=== PATIENT | female | born 1960 | race African-American/Black ===

== ENCOUNTER 2018-12-29 08:42 | Inpatient (IN) ==
[2018-12-29] MEDS ORDERED: KETOROLAC 30 MG/1 ML VIAL IV STA (09:01)
[2018-12-29 09:27] LABS: Basophils % 0.5 % (0.0-0.8); Eosinophils # 0.3 10*3/uL (0.0-0.87); Eosinophils % 4.7 % (0.00-10.9); Hematocrit 37.8 VOL% (35.7-47.0); Hemoglobin 12.3 GM/DL (12.0-16.0); Immature Granulocytes % 0.2 %; Immature Granulocytes Absolute 0.01 #; Lymphocytes # 2.1 10*3/uL (1.4-4.0); Lymphocytes % 33.9 % (21.3-54.2); Mean Corpuscular HGB Conc 32.5 GM/DL (32-36); Mean Corpuscular Hemoglobin 29 PG (27-34); Mean Corpuscular Volume 87.5 FL (87-102); Mean Platelet Volume 10.1 FL (9.6-12.0); Monocytes # 0.4 10*3/uL (0.11-0.8); Monocytes % 6.9 % (1.7-12.7); Neutrophils # 3.3 10*3/uL (1.4-7.4); Neutrophils % 53.8 % (38.7-73.9); Platelet Count 244 T/CUMM (130-400); Red Blood Count 4.32 MC/CUMM (3.8-5.5); Red Cell Distribution Width 13.9 % (9.3-17.3); White Blood Count 6.2 T/CUMM (4-12)
[2018-12-29 09:53] LABS: Apearance,Urine CLEAR (Clear); Bacteria,Urine Occasional /HPF (Few); Bilirubin,Urine Negative (Negative); Blood, Urine Small mg/dL (Negative); Glucose,Urine (UA) Negative (Negative); Ketones,Urine Negative (Negative); Nitrite,Urine Negative (Negative); Protein,Urine Negative; RBC,Urine 3 /HPF (0-4); Squamous Epithelial Cell,Urine Occasional /HPF (0-10); Urine Color Yellow (Yellow); Urine Urobilinogen < 2.0 EU/DL (0.2-1.0); WBC,Urine 3 /HPF (0-6)
[2018-12-29 09:54] LABS: Albumin 3.3 G/DL (3.4-5.0); Bilirubin,Total 0.4 MG/DL (0.2-1.0); Calcium 8.9 MG/DL (8.5-10.1); Osmolality,Calculated 280.4 MOS/KG (273-304); Total Protein 6.9 G/DL (6.4-8.3)
[2018-12-29] MEDS ORDERED: LEVOFLOXACIN INJ 500 MG in PREMIX 1 EACH IV ONE (11:22)
[2018-12-29] MEDS ORDERED: metroNIDAZOLE INJ 500 MG in PREMIX 1 EACH IV ONE (11:22)
[2018-12-29] MEDS ORDERED: ONDANSETRON 4 MG/2 ML VIAL IV STA (11:37)
[2018-12-29] MEDS ORDERED: HYDROmorphone 2 MG/1 ML VIAL IV STA (11:37)
[2018-12-29] MEDS ORDERED: KETOROLAC 10 MG TABLET PO PRN (12:14)
[2018-12-29] MEDS ORDERED: ACETAMINOPHEN 325 MG TABLET PO PRN (12:14)
[2018-12-29] MEDS ORDERED: HYDROmorphone 2 MG/1 ML VIAL IV PRN (12:14)
[2018-12-29] MEDS ORDERED: hydrOXYzine HCL 25 MG TABLET PO PRN (12:17)
[2018-12-29] MEDS ORDERED: HydrOXYzine PAMOATE 50 MG CAPSULE PO PRN (12:17)
[2018-12-29] MEDS ORDERED: ALBUTEROL 2.5 MG/3 ML NEB RESP TX PRN (12:17)
[2018-12-29] MEDS ORDERED: AZELASTINE NASAL 137 MCG/SPRAY 30 ML BOTTLE BOTH NARES PRN (12:17)
[2018-12-29] MEDS ORDERED: DEXTROSE 50% 25 GM/50 ML VIAL IV PRN (12:19)
[2018-12-29] MEDS ORDERED: GLUCAGON 1 MG VIAL IM PRN (12:19)
[2018-12-29] MEDS: LACTATED RINGERS 1,000 ML IV SCH (14:12)
[2018-12-29] MEDS: cefOXitin 2,000 MG in SYRINGE 1 EACH IV SCH ×2 (14:21→21:36)
[2018-12-29] MEDS: IPRATROPIUM 500 MCG/2.5 ML NEB RESP TX SCH ×2 (15:59→18:12)
[2018-12-29] MEDS: METOPROLOL TARTRATE 100 MG TABLET PO SCH (17:52)
[2018-12-29] MEDS: ASPIRIN EC 81 MG TABLET PO SCH (17:52)
[2018-12-29] MEDS: INSULIN LISPRO 100 UNIT/ML SUBCUT SCH (17:53)
[2018-12-29] MEDS: PANTOPRAZOLE 40 MG TABLET PO SCH (17:53)
[2018-12-29] MEDS: amLODIPine 10 MG TABLET PO SCH (17:53)
[2018-12-29] MEDS: POTASSIUM CHLORIDE 20 MEQ TABLET PO SCH (18:32)
[2018-12-29] MEDS: CHLORTHALIDONE 25 MG TABLET PO SCH (18:32)
[2018-12-29] MEDS: TOPIRAMATE 25 MG TABLET PO SCH (21:36)
[2018-12-30] MEDS: LACTATED RINGERS 1,000 ML IV SCH ×2 (03:04→14:37)
[2018-12-30] MEDS: cefOXitin 2,000 MG in SYRINGE 1 EACH IV SCH ×2 (03:08→08:13)
[2018-12-30 05:43] LABS: Basophils % 0.5 % (0.0-0.8); Eosinophils # 0.2 10*3/uL (0.0-0.87); Eosinophils % 3.6 % (0.00-10.9); Hematocrit 35.9 VOL% (35.7-47.0); Hemoglobin 11.7 GM/DL (12.0-16.0); Immature Granulocytes % 0.5 %; Immature Granulocytes Absolute 0.03 #; Lymphocytes # 1.7 10*3/uL (1.4-4.0); Lymphocytes % 29.6 % (21.3-54.2); Mean Corpuscular HGB Conc 32.6 GM/DL (32-36); Mean Corpuscular Hemoglobin 29 PG (27-34); Mean Corpuscular Volume 88.4 FL (87-102); Mean Platelet Volume 11.2 FL (9.6-12.0); Monocytes # 0.4 10*3/uL (0.11-0.8); Neutrophils # 3.4 10*3/uL (1.4-7.4); Neutrophils % 58.8 % (38.7-73.9); Platelet Count 175 T/CUMM (130-400); Red Blood Count 4.06 MC/CUMM (3.8-5.5); Red Cell Distribution Width 14.1 % (9.3-17.3); White Blood Count 5.8 T/CUMM (4-12)
[2018-12-30 06:04] LABS: Hypochromasia 1+; Platelet Estimate Adequate
[2018-12-30 06:26] LABS: Alanine Aminotransferase 19 U/L (13-56); Albumin 2.9 G/DL (3.4-5.0); Alkaline Phosphatase 144 U/L (45-117); Aspartate Amino Transferase 17 U/L (0-37); Bilirubin,Total < 0.39 MG/DL (0.2-1.0); Blood Urea Nitrogen 11 MG/DL (7-18); Calcium 8.5 MG/DL (8.5-10.1); Glucose 146 MG/DL (74-106); Osmolality,Calculated 276.7 MOS/KG (273-304); Potassium 3.7 MMOL/L (3.5-5.1); Sodium 138 MMOL/L (136-145); Total Protein 6.8 G/DL (6.4-8.3)
[2018-12-30] MEDS: IPRATROPIUM 500 MCG/2.5 ML NEB RESP TX SCH ×4 (07:20→19:36)
[2018-12-30] MEDS: INSULIN LISPRO 100 UNIT/ML SUBCUT SCH ×3 (07:50→18:01)
[2018-12-30] MEDS: ASPIRIN EC 81 MG TABLET PO SCH (08:11)
[2018-12-30] MEDS: POTASSIUM CHLORIDE 20 MEQ TABLET PO SCH ×2 (08:11→18:01)
[2018-12-30] MEDS: PANTOPRAZOLE 40 MG TABLET PO SCH (08:11)
[2018-12-30] MEDS: MONTELUKAST 10 MG TABLET PO SCH (08:12)
[2018-12-30] MEDS: amLODIPine 10 MG TABLET PO SCH (08:14)
[2018-12-30] MEDS: CHLORTHALIDONE 25 MG TABLET PO SCH (08:14)
[2018-12-30] MEDS: TOPIRAMATE 100 MG TABLET PO SCH (08:14)
[2018-12-30] MEDS: METOPROLOL TARTRATE 100 MG TABLET PO SCH (08:14)
[2018-12-30] MEDS ORDERED: LIDOCAINE 1%/EPI INJ 20 ML VIAL ONE (10:21)
[2018-12-30] MEDS ORDERED: TISSUE ADHESIVE 1 EACH APPLICATOR TOP ONE (11:38)
[2018-12-30] MEDS ORDERED: SEVOFLURANE 1 UNIT/15 MINUTE INH ONE (12:27)
[2018-12-30] MEDS ORDERED: fentaNYL 100 MCG/2 ML VIAL ONE (12:27)
[2018-12-30] MEDS ORDERED: PROPOFOL 200 MG/20 ML VIAL IV ONE (12:27)
[2018-12-30] MEDS ORDERED: ONDANSETRON 4 MG/2 ML VIAL ONE ×2 (12:28→12:46)
[2018-12-30] MEDS ORDERED: MIDAZOLAM 2 MG/2 ML VIAL ONE (12:28)
[2018-12-30] MEDS ORDERED: ROCURONIUM 100 MG/10 ML VIAL IV ONE (12:28)
[2018-12-30] MEDS ORDERED: NEOSTIGMINE 10 MG/10 ML VIAL ONE (12:29)
[2018-12-30] MEDS ORDERED: GLYCOPYRROLATE 0.4 MG/2 ML VIAL ONE (12:29)
[2018-12-30] MEDS ORDERED: PHENYLEPHRINE 1 MG/10 ML SYRINGE IV ONE (12:29)
[2018-12-30] MEDS ORDERED: ONDANSETRON 4 MG/2 ML VIAL IV PRN (12:45)
[2018-12-30] MEDS ORDERED: HYDROmorphone 2 MG/1 ML VIAL ONE (12:46)
[2018-12-30] MEDS: HYDROmorphone 2 MG/1 ML VIAL IV PRN ×2 (12:50→13:00)
[2018-12-30 14:18] LABS: Basophils % 0.4 % (0.0-0.8); Eosinophils # 0.2 10*3/uL (0.0-0.87); Eosinophils % 2.4 % (0.00-10.9); Hematocrit 39.5 VOL% (35.7-47.0); Hemoglobin 12.8 GM/DL (12.0-16.0); Immature Granulocytes % 0.4 %; Immature Granulocytes Absolute 0.03 #; Lymphocytes # 1.2 10*3/uL (1.4-4.0); Lymphocytes % 15.1 % (21.3-54.2); Mean Corpuscular HGB Conc 32.4 GM/DL (32-36); Mean Corpuscular Hemoglobin 29 PG (27-34); Mean Corpuscular Volume 88.4 FL (87-102); Mean Platelet Volume 9.9 FL (9.6-12.0); Monocytes # 0.4 10*3/uL (0.11-0.8); Monocytes % 4.9 % (1.7-12.7); Neutrophils # 6.2 10*3/uL (1.4-7.4); Neutrophils % 76.8 % (38.7-73.9); Platelet Count 245 T/CUMM (130-400); Red Blood Count 4.47 MC/CUMM (3.8-5.5); Red Cell Distribution Width 14.2 % (9.3-17.3)
[2018-12-30] MEDS: ONDANSETRON 4 MG/2 ML VIAL IV PRN (14:21)
[2018-12-30 14:35] LABS: Albumin 3.3 G/DL (3.4-5.0); Bilirubin,Total 0.5 MG/DL (0.2-1.0); Calcium 8.9 MG/DL (8.5-10.1); Osmolality,Calculated 274.8 MOS/KG (273-304); Potassium 3.8 MMOL/L (3.5-5.1); Total Protein 7.6 G/DL (6.4-8.3)
[2018-12-30] MEDS: BISACODYL 5 MG TABLET PO PRN (18:01)
[2018-12-30] MEDS: TOPIRAMATE 25 MG TABLET PO SCH (21:06)
[2018-12-31] MEDS: LACTATED RINGERS 1,000 ML IV SCH ×3 (00:54→20:07)
[2018-12-31 04:29] LABS: Basophils % 0.4 % (0.0-0.8); Eosinophils # 0.3 10*3/uL (0.0-0.87); Eosinophils % 3.7 % (0.00-10.9); Hematocrit 35.3 VOL% (35.7-47.0); Hemoglobin 11.5 GM/DL (12.0-16.0); Immature Granulocytes % 0.1 %; Immature Granulocytes Absolute 0.01 #; Lymphocytes # 1.6 10*3/uL (1.4-4.0); Lymphocytes % 23.2 % (21.3-54.2); Mean Corpuscular HGB Conc 32.6 GM/DL (32-36); Mean Corpuscular Hemoglobin 29 PG (27-34); Mean Platelet Volume 10.3 FL (9.6-12.0); Monocytes # 0.5 10*3/uL (0.11-0.8); Monocytes % 7.2 % (1.7-12.7); Neutrophils # 4.6 10*3/uL (1.4-7.4); Neutrophils % 65.4 % (38.7-73.9); Platelet Count 233 T/CUMM (130-400); Red Blood Count 4.01 MC/CUMM (3.8-5.5); Red Cell Distribution Width 14.3 % (9.3-17.3)
[2018-12-31 04:53] LABS: Bilirubin,Total 1.4 MG/DL (0.2-1.0); Calcium 8.8 MG/DL (8.5-10.1); Potassium 3.6 MMOL/L (3.5-5.1); Total Protein 6.7 G/DL (6.4-8.3)
[2018-12-31] MEDS ORDERED: LORazepam 2 MG/1 ML VIAL ONE ×2 (06:29→06:33)
[2018-12-31] MEDS: IPRATROPIUM 500 MCG/2.5 ML NEB RESP TX SCH ×2 (07:24→11:35)
[2018-12-31] MEDS: INSULIN LISPRO 100 UNIT/ML SUBCUT SCH ×3 (09:10→17:06)
[2018-12-31] MEDS: CHLORTHALIDONE 25 MG TABLET PO SCH (09:10)
[2018-12-31] MEDS: amLODIPine 10 MG TABLET PO SCH (09:11)
[2018-12-31] MEDS: ASPIRIN EC 81 MG TABLET PO SCH (09:12)
[2018-12-31] MEDS: METOPROLOL TARTRATE 100 MG TABLET PO SCH (09:12)
[2018-12-31] MEDS: MONTELUKAST 10 MG TABLET PO SCH (09:12)
[2018-12-31] MEDS: POTASSIUM CHLORIDE 20 MEQ TABLET PO SCH ×2 (09:12→17:06)
[2018-12-31] MEDS: PANTOPRAZOLE 40 MG TABLET PO SCH (09:12)
[2018-12-31] MEDS: TOPIRAMATE 100 MG TABLET PO SCH (09:14)
[2018-12-31] MEDS: ALBUTEROL 1.25 MG/3 ML NEB RESP TX SCH ×2 (13:07→20:45)
[2018-12-31] MEDS: TOPIRAMATE 25 MG TABLET PO SCH (20:09)
[2019-01-01] MEDS: ALBUTEROL 1.25 MG/3 ML NEB RESP TX SCH ×4 (02:04→19:24)
[2019-01-01 04:12] LABS: Basophils % 0.5 % (0.0-0.8); Eosinophils # 0.3 10*3/uL (0.0-0.87); Eosinophils % 5.1 % (0.00-10.9); Hematocrit 36.5 VOL% (35.7-47.0); Hemoglobin 11.7 GM/DL (12.0-16.0); Immature Granulocytes % 0.3 %; Immature Granulocytes Absolute 0.02 #; Mean Corpuscular HGB Conc 32.1 GM/DL (32-36); Mean Corpuscular Hemoglobin 29 PG (27-34); Mean Corpuscular Volume 88.8 FL (87-102); Mean Platelet Volume 10.1 FL (9.6-12.0); Monocytes # 0.5 10*3/uL (0.11-0.8); Monocytes % 7.5 % (1.7-12.7); Neutrophils # 3.6 10*3/uL (1.4-7.4); Neutrophils % 55.6 % (38.7-73.9); Platelet Count 223 T/CUMM (130-400); Red Blood Count 4.11 MC/CUMM (3.8-5.5); Red Cell Distribution Width 14.5 % (9.3-17.3); White Blood Count 6.5 T/CUMM (4-12)
[2019-01-01 04:52] LABS: Albumin 3.3 G/DL (3.4-5.0); Bilirubin,Total 1.1 MG/DL (0.2-1.0); Osmolality,Calculated 281.5 MOS/KG (273-304); Potassium 3.9 MMOL/L (3.5-5.1); Total Protein 7.3 G/DL (6.4-8.3)
[2019-01-01] MEDS ORDERED: PHENOL 1.4% THROAT SPRAY 177 ML BOTTLE PO PRN (09:17)
[2019-01-01] MEDS ORDERED: BENZOCAINE/MENTHOL LOZENGE 18/BOX PO PRN (09:18)
[2019-01-01] MEDS ORDERED: FLUCONAZOLE 200 MG TABLET PO ONE (09:18)
[2019-01-01] MEDS ORDERED: FLUCONAZOLE 100 MG TABLET PO SCH (09:30)
[2019-01-01] MEDS: DOCUSATE SODIUM 100 MG CAPSULE PO SCH ×2 (10:06→20:58)
[2019-01-01] MEDS: MONTELUKAST 10 MG TABLET PO SCH (10:06)
[2019-01-01] MEDS: POTASSIUM CHLORIDE 20 MEQ TABLET PO SCH ×2 (10:06→16:29)
[2019-01-01] MEDS: ASPIRIN EC 81 MG TABLET PO SCH (10:06)
[2019-01-01] MEDS: PANTOPRAZOLE 40 MG TABLET PO SCH (10:07)
[2019-01-01] MEDS: TOPIRAMATE 100 MG TABLET PO SCH (10:08)
[2019-01-01] MEDS: carBAMazepine 200 MG TABLET PO SCH ×2 (10:08→20:58)
[2019-01-01] MEDS: INSULIN LISPRO 100 UNIT/ML SUBCUT SCH ×3 (10:25→16:22)
[2019-01-01] MEDS: LACTATED RINGERS 1,000 ML IV SCH (11:02)
[2019-01-01] MEDS: CHLORTHALIDONE 25 MG TABLET PO SCH (11:18)
[2019-01-01] MEDS: amLODIPine 10 MG TABLET PO SCH (11:18)
[2019-01-01] MEDS: METOPROLOL TARTRATE 100 MG TABLET PO SCH (12:03)
[2019-01-01] MEDS: levETIRAcetam 500 MG TABLET PO SCH (20:58)
[2019-01-02] MEDS: ALBUTEROL 1.25 MG/3 ML NEB RESP TX SCH ×5 (00:42→19:02)
[2019-01-02 06:20] LABS: Calcium 9.4 MG/DL (8.5-10.1); Osmolality,Calculated 279.5 MOS/KG (273-304); Potassium 3.5 MMOL/L (3.5-5.1)
[2019-01-02] MEDS: INSULIN LISPRO 100 UNIT/ML SUBCUT SCH ×3 (09:38→17:39)
[2019-01-02] MEDS: MONTELUKAST 10 MG TABLET PO SCH (09:39)
[2019-01-02] MEDS: POTASSIUM CHLORIDE 20 MEQ TABLET PO SCH ×2 (09:39→17:29)
[2019-01-02] MEDS: METOPROLOL TARTRATE 100 MG TABLET PO SCH (09:40)
[2019-01-02] MEDS: ASPIRIN EC 81 MG TABLET PO SCH (09:40)
[2019-01-02] MEDS: PANTOPRAZOLE 40 MG TABLET PO SCH (09:40)
[2019-01-02] MEDS: levETIRAcetam 500 MG TABLET PO SCH ×2 (09:40→21:29)
[2019-01-02] MEDS: amLODIPine 10 MG TABLET PO SCH (09:40)
[2019-01-02] MEDS: CHLORTHALIDONE 25 MG TABLET PO SCH (09:40)
[2019-01-02] MEDS: DOCUSATE SODIUM 100 MG CAPSULE PO SCH ×2 (09:40→21:29)
[2019-01-02] MEDS: BISACODYL 5 MG TABLET PO PRN (09:40)
[2019-01-02] MEDS: carBAMazepine 200 MG TABLET PO SCH ×2 (09:42→21:29)
[2019-01-02] MEDS ORDERED: LACTULOSE 20 GM/30 ML UDCUP PO ONE (14:15)
[2019-01-02 17:55] LABS: Apearance,Urine CLOUDY (Clear); Bacteria,Urine Occasional /HPF (Few); Bilirubin,Urine Negative (Negative); Blood, Urine Small mg/dL (Negative); Glucose,Urine (UA) Negative (Negative); Ketones,Urine Negative (Negative); Nitrite,Urine Negative (Negative); Protein,Urine Negative; RBC,Urine 35 /HPF (0-4); Squamous Epithelial Cell,Urine Many /HPF (0-10); Urine Color Yellow (Yellow); Urine Urobilinogen < 2.0 EU/DL (0.2-1.0); WBC,Urine 190 /HPF (0-6)
[2019-01-02] MEDS: ONDANSETRON 4 MG/2 ML VIAL IV PRN (21:29)
[2019-01-03] MEDS: ALBUTEROL 1.25 MG/3 ML NEB RESP TX SCH ×4 (01:52→20:07)
[2019-01-03] MEDS: POTASSIUM CHLORIDE 20 MEQ TABLET PO SCH ×2 (09:56→16:49)
[2019-01-03] MEDS: ASPIRIN EC 81 MG TABLET PO SCH (09:56)
[2019-01-03] MEDS: levETIRAcetam 500 MG TABLET PO SCH ×2 (09:56→20:59)
[2019-01-03] MEDS: MONTELUKAST 10 MG TABLET PO SCH (09:56)
[2019-01-03] MEDS: DOCUSATE SODIUM 100 MG CAPSULE PO SCH ×2 (09:56→20:59)
[2019-01-03] MEDS: PANTOPRAZOLE 40 MG TABLET PO SCH (09:56)
[2019-01-03] MEDS: amLODIPine 10 MG TABLET PO SCH (09:56)
[2019-01-03] MEDS: carBAMazepine 200 MG TABLET PO SCH ×2 (09:56→20:58)
[2019-01-03] MEDS: METOPROLOL TARTRATE 100 MG TABLET PO SCH (09:57)
[2019-01-03] MEDS: CHLORTHALIDONE 25 MG TABLET PO SCH (09:57)
[2019-01-03] MEDS: CIPROFLOXACIN INJ 400 MG in PREMIX 1 EACH IV SCH ×2 (09:57→20:58)
[2019-01-03] MEDS: BISACODYL 5 MG TABLET PO PRN (09:57)
[2019-01-03] MEDS: INSULIN LISPRO 100 UNIT/ML SUBCUT SCH ×3 (10:07→16:32)
[2019-01-03] MEDS ORDERED: POLYETHYLENE GLYCOL POWDER 255 GM BOTTLE PO ONE (17:23)
[2019-01-04] MEDS: ALBUTEROL 1.25 MG/3 ML NEB RESP TX SCH ×4 (01:20→19:24)
[2019-01-04 08:47] LABS: Basophils % 0.4 % (0.0-0.8); Eosinophils # 0.7 10*3/uL (0.0-0.87); Eosinophils % 7.5 % (0.00-10.9); Hematocrit 41.5 VOL% (35.7-47.0); Hemoglobin 13.4 GM/DL (12.0-16.0); Immature Granulocytes % 0.6 %; Immature Granulocytes Absolute 0.06 #; Lymphocytes # 2.2 10*3/uL (1.4-4.0); Lymphocytes % 23.9 % (21.3-54.2); Mean Corpuscular HGB Conc 32.3 GM/DL (32-36); Mean Corpuscular Hemoglobin 29 PG (27-34); Mean Corpuscular Volume 88.3 FL (87-102); Mean Platelet Volume 9.8 FL (9.6-12.0); Monocytes # 0.5 10*3/uL (0.11-0.8); Monocytes % 5.5 % (1.7-12.7); Neutrophils # 5.8 10*3/uL (1.4-7.4); Neutrophils % 62.1 % (38.7-73.9); Platelet Count 289 T/CUMM (130-400); Red Cell Distribution Width 14.5 % (9.3-17.3); White Blood Count 9.3 T/CUMM (4-12)
[2019-01-04 09:08] LABS: Alanine Aminotransferase 39 U/L (13-56); Albumin 3.5 G/DL (3.4-5.0); Alkaline Phosphatase 200 U/L (45-117); Aspartate Amino Transferase 17 U/L (0-37); Bilirubin,Total < 0.39 MG/DL (0.2-1.0); Blood Urea Nitrogen 15 MG/DL (7-18); Calcium 9.1 MG/DL (8.5-10.1); Glucose 208 MG/DL (74-106); Osmolality,Calculated 285.4 MOS/KG (273-304); Potassium 3.1 MMOL/L (3.5-5.1); Sodium 140 MMOL/L (136-145); Total Protein 8.3 G/DL (6.4-8.3)
[2019-01-04] MEDS: amLODIPine 10 MG TABLET PO SCH (09:24)
[2019-01-04] MEDS: CHLORTHALIDONE 25 MG TABLET PO SCH (09:24)
[2019-01-04] MEDS: POTASSIUM CHLORIDE 20 MEQ TABLET PO SCH ×2 (09:24→17:50)
[2019-01-04] MEDS: PANTOPRAZOLE 40 MG TABLET PO SCH (09:24)
[2019-01-04] MEDS: carBAMazepine 200 MG TABLET PO SCH ×2 (09:24→21:01)
[2019-01-04] MEDS: ASPIRIN EC 81 MG TABLET PO SCH (09:24)
[2019-01-04] MEDS: METOPROLOL TARTRATE 100 MG TABLET PO SCH (09:24)
[2019-01-04] MEDS: MONTELUKAST 10 MG TABLET PO SCH (09:24)
[2019-01-04] MEDS: levETIRAcetam 500 MG TABLET PO SCH ×2 (09:25→21:01)
[2019-01-04] MEDS: CIPROFLOXACIN INJ 400 MG in PREMIX 1 EACH IV SCH ×2 (09:25→21:03)
[2019-01-04] MEDS: DOCUSATE SODIUM 100 MG CAPSULE PO SCH ×2 (09:25→21:01)
[2019-01-04] MEDS: INSULIN LISPRO 100 UNIT/ML SUBCUT SCH ×3 (10:04→17:50)
[2019-01-05] MEDS: ALBUTEROL 1.25 MG/3 ML NEB RESP TX SCH ×4 (00:35→18:53)
[2019-01-05] MEDS: POTASSIUM CHLORIDE 20 MEQ TABLET PO PRN ×3 (04:06→17:03)
[2019-01-05 06:32] LABS: Basophils % 0.4 % (0.0-0.8); Eosinophils # 0.7 10*3/uL (0.0-0.87); Eosinophils % 8.8 % (0.00-10.9); Hematocrit 38.9 VOL% (35.7-47.0); Hemoglobin 12.6 GM/DL (12.0-16.0); Immature Granulocytes % 0.3 %; Immature Granulocytes Absolute 0.02 #; Lymphocytes # 1.9 10*3/uL (1.4-4.0); Lymphocytes % 24.4 % (21.3-54.2); Mean Corpuscular HGB Conc 32.4 GM/DL (32-36); Mean Corpuscular Hemoglobin 28 PG (27-34); Mean Corpuscular Volume 86.8 FL (87-102); Mean Platelet Volume 10.2 FL (9.6-12.0); Monocytes # 0.5 10*3/uL (0.11-0.8); Monocytes % 6.1 % (1.7-12.7); Neutrophils # 4.7 10*3/uL (1.4-7.4); Platelet Count 269 T/CUMM (130-400); Red Blood Count 4.48 MC/CUMM (3.8-5.5); Red Cell Distribution Width 14.3 % (9.3-17.3); White Blood Count 7.8 T/CUMM (4-12)
[2019-01-05 06:55] LABS: Alanine Aminotransferase 31 U/L (13-56); Albumin 3.2 G/DL (3.4-5.0); Alkaline Phosphatase 203 U/L (45-117); Aspartate Amino Transferase 16 U/L (0-37); Bilirubin,Total < 0.39 MG/DL (0.2-1.0); Blood Urea Nitrogen 17 MG/DL (7-18); Calcium 8.9 MG/DL (8.5-10.1); Glucose 146 MG/DL (74-106); Osmolality,Calculated 277.8 MOS/KG (273-304); Potassium 3.4 MMOL/L (3.5-5.1); Sodium 137 MMOL/L (136-145); Total Protein 7.8 G/DL (6.4-8.3)
[2019-01-05] MEDS: INSULIN LISPRO 100 UNIT/ML SUBCUT SCH ×3 (08:46→19:14)
[2019-01-05] MEDS: MONTELUKAST 10 MG TABLET PO SCH (08:47)
[2019-01-05] MEDS: METOPROLOL TARTRATE 100 MG TABLET PO SCH (08:47)
[2019-01-05] MEDS: ASPIRIN EC 81 MG TABLET PO SCH (08:47)
[2019-01-05] MEDS: carBAMazepine 200 MG TABLET PO SCH ×2 (08:47→21:28)
[2019-01-05] MEDS: POTASSIUM CHLORIDE 20 MEQ TABLET PO SCH ×2 (08:47→17:03)
[2019-01-05] MEDS: PANTOPRAZOLE 40 MG TABLET PO SCH (08:48)
[2019-01-05] MEDS: levETIRAcetam 500 MG TABLET PO SCH ×2 (08:48→21:28)
[2019-01-05] MEDS: DOCUSATE SODIUM 100 MG CAPSULE PO SCH ×2 (08:48→21:28)
[2019-01-05] MEDS: CHLORTHALIDONE 25 MG TABLET PO SCH (08:48)
[2019-01-05] MEDS: CIPROFLOXACIN INJ 400 MG in PREMIX 1 EACH IV SCH (08:51)
[2019-01-05] MEDS: DOXYCYCLINE HYCLATE 100 MG CAPSULE PO SCH ×2 (12:53→21:28)
[2019-01-05] MEDS: amLODIPine 10 MG TABLET PO SCH (12:53)
[2019-01-06] MEDS: CIPROFLOXACIN INJ 400 MG in PREMIX 1 EACH IV SCH (00:24)
[2019-01-06] MEDS: ALBUTEROL 1.25 MG/3 ML NEB RESP TX SCH ×4 (00:45→19:58)
[2019-01-06] MEDS: POTASSIUM CHLORIDE 20 MEQ TABLET PO PRN (03:46)
[2019-01-06] MEDS: INSULIN LISPRO 100 UNIT/ML SUBCUT SCH ×3 (08:50→16:00)
[2019-01-06] MEDS: amLODIPine 10 MG TABLET PO SCH (08:50)
[2019-01-06] MEDS: ASPIRIN EC 81 MG TABLET PO SCH (08:50)
[2019-01-06] MEDS: carBAMazepine 200 MG TABLET PO SCH ×2 (08:50→21:48)
[2019-01-06] MEDS: METOPROLOL TARTRATE 100 MG TABLET PO SCH (08:51)
[2019-01-06] MEDS: levETIRAcetam 500 MG TABLET PO SCH ×2 (08:51→21:48)
[2019-01-06] MEDS: DOXYCYCLINE HYCLATE 100 MG CAPSULE PO SCH ×2 (08:51→21:48)
[2019-01-06] MEDS: MONTELUKAST 10 MG TABLET PO SCH (08:51)
[2019-01-06] MEDS: PANTOPRAZOLE 40 MG TABLET PO SCH (08:51)
[2019-01-06] MEDS: POTASSIUM CHLORIDE 20 MEQ TABLET PO SCH ×2 (08:51→16:05)
[2019-01-06] MEDS: DOCUSATE SODIUM 100 MG CAPSULE PO SCH ×2 (08:51→21:48)
[2019-01-06] MEDS: CHLORTHALIDONE 25 MG TABLET PO SCH (08:51)
[2019-01-07] MEDS: ALBUTEROL 1.25 MG/3 ML NEB RESP TX SCH ×4 (00:33→17:48)
[2019-01-07] MEDS: INSULIN LISPRO 100 UNIT/ML SUBCUT SCH ×3 (07:37→16:56)
[2019-01-07] MEDS: POTASSIUM CHLORIDE 20 MEQ TABLET PO SCH ×2 (07:37→16:56)
[2019-01-07] MEDS: CHLORTHALIDONE 25 MG TABLET PO SCH (09:17)
[2019-01-07] MEDS: PANTOPRAZOLE 40 MG TABLET PO SCH (09:17)
[2019-01-07] MEDS: levETIRAcetam 500 MG TABLET PO SCH ×2 (09:17→21:11)
[2019-01-07] MEDS: carBAMazepine 200 MG TABLET PO SCH ×2 (09:17→21:11)
[2019-01-07] MEDS: METOPROLOL TARTRATE 100 MG TABLET PO SCH (09:17)
[2019-01-07] MEDS: MONTELUKAST 10 MG TABLET PO SCH (09:17)
[2019-01-07] MEDS: DOXYCYCLINE HYCLATE 100 MG CAPSULE PO SCH ×2 (09:17→21:11)
[2019-01-07] MEDS: DOCUSATE SODIUM 100 MG CAPSULE PO SCH ×2 (09:17→21:13)
[2019-01-07] MEDS: ASPIRIN EC 81 MG TABLET PO SCH (09:17)
[2019-01-07] MEDS: amLODIPine 10 MG TABLET PO SCH (09:17)
[2019-01-08] MEDS: ALBUTEROL 1.25 MG/3 ML NEB RESP TX SCH ×3 (07:35→11:24)
[2019-01-08] MEDS: INSULIN LISPRO 100 UNIT/ML SUBCUT SCH ×2 (09:31→12:32)
[2019-01-08] MEDS: PANTOPRAZOLE 40 MG TABLET PO SCH (09:36)
[2019-01-08] MEDS: ASPIRIN EC 81 MG TABLET PO SCH (09:36)
[2019-01-08] MEDS: METOPROLOL TARTRATE 100 MG TABLET PO SCH (09:36)
[2019-01-08] MEDS: MONTELUKAST 10 MG TABLET PO SCH (09:37)
[2019-01-08] MEDS: carBAMazepine 200 MG TABLET PO SCH (09:37)
[2019-01-08] MEDS: levETIRAcetam 500 MG TABLET PO SCH (09:37)
[2019-01-08] MEDS: DOXYCYCLINE HYCLATE 100 MG CAPSULE PO SCH (09:37)
[2019-01-08] MEDS: POTASSIUM CHLORIDE 20 MEQ TABLET PO SCH (09:38)
[2019-01-08] MEDS: DOCUSATE SODIUM 100 MG CAPSULE PO SCH (09:39)
[2019-01-08] MEDS: CHLORTHALIDONE 25 MG TABLET PO SCH ×2 (09:39→12:37)
[2019-01-08] MEDS: amLODIPine 10 MG TABLET PO SCH ×2 (09:39→12:37)
[2019-01-08 13:27] VITALS: BP 133/97
== END 2019-01-08 14:50 | disposition swing bed (61) | DRG 418 ==
LOC: N.ED 08:42 → N.EDINP 12:14 → N.3E 14:20 → N.ICU 12-31 06:54 → N.3E 01-01 12:22
PROVIDERS: ADMIT Surgery; ATTEND Surgery
PROC: LAPCHOL (2018-12-30 10:16)

== ENCOUNTER 2021-02-01 10:07 | Inpatient (IN) ==
[2021-02-01] MEDS ORDERED: SODIUM CHLORIDE 0.9% 1,000 ML IV STA (10:22)
[2021-02-01 11:07] LABS: Bilirubin,Urine Negative (Negative); Blood, Urine Negative (Negative); Glucose,Urine (UA) Negative (Negative); Ketones,Urine Negative (Negative); Mucus,Urine Occasional /LPF (Occasional); Nitrite,Urine Negative (Negative); Protein,Urine Negative; RBC,Urine 1 /HPF (0-4); Squamous Epithelial Cell,Urine Occasional /HPF (0-10); Urine Appearance CLEAR (Clear); Urine Color Yellow (Yellow); Urine Specific Gravity 1.011 (1.001-1.035); Urine Urobilinogen < 2.0 EU/DL (0.2-1.0)
[2021-02-01 11:11] LABS: Barbiturates Screen,Urine Negative (Negative); Benzodiazepines Screen,Urine Negative (Negative); Cannabinoid Screen,Urine Negative (Negative); Opiate Screen,Urine Positive (Negative); Phencyclidine Screen,Urine Negative (Negative)
[2021-02-01 11:11] LABS: Basophils % 0.2 % (0.0-0.8); Hemoglobin 12.4 GM/DL (12.0-16.0); Immature Granulocytes % 0.2 %; Immature Granulocytes Absolute 0.01 #; Lymphocytes # 1.6 10*3/uL (1.4-4.0); Lymphocytes % 26.6 % (21.3-54.2); Mean Corpuscular HGB Conc 32.6 GM/DL (32-36); Mean Corpuscular Volume 86.2 FL (87-102); Mean Platelet Volume 9.6 FL (9.6-12.0); Monocytes % 6.1 % (1.7-12.7); Neutrophils % 66.9 % (38.7-73.9); Platelet Count 260 T/CUMM (130-400); Red Blood Count 4.41 MC/CUMM (3.8-5.5); Red Cell Distribution Width 14.8 % (9.3-17.3); White Blood Count 5.9 T/CUMM (4-12)
[2021-02-01 11:33] LABS: Alanine Aminotransferase 19 U/L (13-56); Albumin 3.2 G/DL (3.4-5.0); Alkaline Phosphatase 124 U/L (45-117); Aspartate Amino Transferase 17 U/L (0-37); Blood Urea Nitrogen 9 MG/DL (7-18); Calcium 8.9 MG/DL (8.5-10.1); Carbon Dioxide 31 MMOL/L (21-32); Estimated Glom Filtration Rate 111 ML/MIN; Glucose 120 MG/DL (74-106); Osmolality,Calculated 280.3 MOS/KG (273-304); Potassium 3.8 MMOL/L (3.5-5.1); Sodium 141 MMOL/L (136-145); Total Protein 7.3 G/DL (5.0-7.5)
[2021-02-01] MEDS ORDERED: GLUCAGON 1 MG VIAL IM PRN ×3 (12:18→12:22)
[2021-02-01] MEDS ORDERED: DEXTROSE 50% 25 GM/50 ML VIAL IV PRN ×3 (12:18→12:22)
[2021-02-01] MEDS: TOPIRAMATE 100 MG TABLET PO SCH (14:41)
[2021-02-01] MEDS: GABAPENTIN 400 MG CAPSULE PO SCH ×2 (14:42→21:39)
[2021-02-01] MEDS: carBAMazepine 200 MG TABLET PO SCH ×2 (14:42→21:39)
[2021-02-01] MEDS: INSULIN LISPRO 100 UNIT/ML SUBCUT SCH ×2 (15:34→21:20)
[2021-02-01] MEDS ORDERED: LORazepam 2 MG/1 ML VIAL IV ONE (20:27)
[2021-02-01] MEDS ORDERED: LORazepam 2 MG/1 ML VIAL ONE (20:32)
[2021-02-01] MEDS ORDERED: ISOSORBIDE DINITRATE 20 MG TABLET PO SCH (21:00)
[2021-02-01] MEDS ORDERED: METOPROLOL TARTRATE 100 MG TABLET PO SCH (21:00)
[2021-02-01] MEDS ORDERED: hydrALAZINE 20 MG/1 ML VIAL IV PRN (21:05)
[2021-02-01] MEDS ORDERED: MORPHINE 4 MG/1 ML VIAL IV PRN (21:18)
[2021-02-01] MEDS: ONDANSETRON 4 MG/2 ML VIAL IV PRN (21:42)
[2021-02-02 04:34] LABS: Basophils % 0.2 % (0.0-0.8); Hematocrit 34.6 VOL% (35.7-47.0); Hemoglobin 11.2 GM/DL (12.0-16.0); Immature Granulocytes % 0.3 %; Immature Granulocytes Absolute 0.02 #; Lymphocytes # 2.1 10*3/uL (1.4-4.0); Lymphocytes % 35.7 % (21.3-54.2); Mean Corpuscular HGB Conc 32.4 GM/DL (32-36); Mean Corpuscular Volume 87.6 FL (87-102); Mean Platelet Volume 9.9 FL (9.6-12.0); Monocytes % 8.2 % (1.7-12.7); Neutrophils % 55.6 % (38.7-73.9); Platelet Count 224 T/CUMM (130-400); Red Blood Count 3.95 MC/CUMM (3.8-5.5); Red Cell Distribution Width 14.7 % (9.3-17.3); White Blood Count 5.8 T/CUMM (4-12)
[2021-02-02 04:56] LABS: Alanine Aminotransferase 17 U/L (13-56); Albumin 2.9 G/DL (3.4-5.0); Alkaline Phosphatase 115 U/L (45-117); Aspartate Amino Transferase 15 U/L (0-37); Bilirubin,Total < 0.39 MG/DL (0.2-1.0); Blood Urea Nitrogen 11 MG/DL (7-18); Calcium 8.3 MG/DL (8.5-10.1); Carbon Dioxide 28 MMOL/L (21-32); Estimated Glom Filtration Rate 112 ML/MIN; Glucose 116 MG/DL (74-106); Osmolality,Calculated 280.3 MOS/KG (273-304); Potassium 3.8 MMOL/L (3.5-5.1); Sodium 141 MMOL/L (136-145); Total Protein 6.5 G/DL (5.0-7.5)
[2021-02-02 05:35] LABS: Hypochromasia 1+; Microcytosis 1+
[2021-02-02 05:36] LABS: Platelet Estimate Normal
[2021-02-02] MEDS: LORazepam 2 MG/1 ML VIAL IV PRN ×2 (07:48→12:05)
[2021-02-02] MEDS: ONDANSETRON 4 MG/2 ML VIAL IV PRN (08:00)
[2021-02-02] MEDS: INSULIN LISPRO 100 UNIT/ML SUBCUT SCH ×3 (08:33→18:16)
[2021-02-02] MEDS ORDERED: FOSPHENYTOIN 1,000 MG.PE in SODIUM CHLORIDE 0.9% 250 ML IV ONE (09:00)
[2021-02-02] MEDS ORDERED: LORazepam 2 MG/1 ML VIAL ONE (12:02)
[2021-02-02] MEDS: GABAPENTIN 400 MG CAPSULE PO SCH ×2 (12:18→20:26)
[2021-02-02] MEDS: ESTRADIOL 1 MG TABLET PO SCH (12:18)
[2021-02-02] MEDS: TOPIRAMATE 100 MG TABLET PO SCH (12:19)
[2021-02-02] MEDS: CETIRIZINE 10 MG TABLET PO SCH (12:19)
[2021-02-02] MEDS: PANTOPRAZOLE 40 MG TABLET PO SCH (12:19)
[2021-02-02] MEDS: carBAMazepine 200 MG TABLET PO SCH ×2 (12:19→20:26)
[2021-02-02] MEDS ORDERED: ETOMIDATE 20 MG/10 ML VIAL IV ONE ×3 (12:34→12:41)
[2021-02-02] MEDS ORDERED: SUCCINYLCHOLINE 200 MG/10 ML VIAL ONE (12:36)
[2021-02-02] MEDS ORDERED: SUCCINYLCHOLINE 200 MG/10 ML VIAL IV ONE (12:42)
[2021-02-02] MEDS ORDERED: LORazepam 2 MG/1 ML VIAL IV ONE (12:56)
[2021-02-02] MEDS: MIDAZOLAM 100 MG in SODIUM CHLORIDE 0.9% 80 ML IV PRN (13:50)
[2021-02-02] MEDS: ENOXAPARIN 40 MG/0.4 ML SYRINGE SUBCUT SCH (18:21)
[2021-02-02] MEDS: FOSPHENYTOIN 100 MG.PE/2 ML VIAL IV SCH (21:35)
[2021-02-03] MEDS: INSULIN LISPRO 100 UNIT/ML SUBCUT SCH ×5 (00:10→23:45)
[2021-02-03] MEDS: MIDAZOLAM 100 MG in SODIUM CHLORIDE 0.9% 80 ML IV PRN ×2 (03:33→17:10)
[2021-02-03 03:56] LABS: ABG Base Excess 1.6 MMOL/L (-2.5-2.5); ABG HCO3 25.9 MMOL/L (20-26); ABG Oxygen Saturation 99.9 % (95-100); ABG PCO2 39.9 MM HG (35-48); ABG PH 7.423 (7.35-7.45)
[2021-02-03 04:21] LABS: Calcium 8.6 MG/DL (8.5-10.1); Osmolality,Calculated 283.1 MOS/KG (273-304); Potassium 3.4 MMOL/L (3.5-5.1)
[2021-02-03] MEDS: ESTRADIOL 1 MG TABLET PO SCH (08:40)
[2021-02-03] MEDS: GABAPENTIN 400 MG CAPSULE PO SCH ×2 (08:40→21:16)
[2021-02-03] MEDS: carBAMazepine 200 MG TABLET PO SCH ×2 (08:40→21:16)
[2021-02-03] MEDS: CETIRIZINE 10 MG TABLET PO SCH (08:40)
[2021-02-03] MEDS: TOPIRAMATE 100 MG TABLET PO SCH (08:40)
[2021-02-03] MEDS: FOSPHENYTOIN 100 MG.PE/2 ML VIAL IV SCH ×2 (09:05→21:17)
[2021-02-03] MEDS: PANTOPRAZOLE 40 MG TABLET PO SCH (09:30)
[2021-02-03] MEDS: PANTOPRAZOLE 40 MG VIAL IV SCH (09:57)
[2021-02-03] MEDS: POTASSIUM CHLORIDE RIDER 20 MEQ in PREMIX 1 EACH IV PRN (09:57)
[2021-02-03 10:33] LABS: Basophils % 0.2 % (0.0-0.8); Hematocrit 35.4 VOL% (35.7-47.0); Hemoglobin 11.7 GM/DL (12.0-16.0); Immature Granulocytes % 0.3 %; Immature Granulocytes Absolute 0.02 #; Lymphocytes # 1.1 10*3/uL (1.4-4.0); Lymphocytes % 17.3 % (21.3-54.2); Mean Corpuscular HGB Conc 33.1 GM/DL (32-36); Mean Corpuscular Volume 85.3 FL (87-102); Mean Platelet Volume 9.9 FL (9.6-12.0); Monocytes % 6.5 % (1.7-12.7); Neutrophils % 75.7 % (38.7-73.9); Platelet Count 221 T/CUMM (130-400); Red Blood Count 4.15 MC/CUMM (3.8-5.5); White Blood Count 6.2 T/CUMM (4-12)
[2021-02-03] MEDS: POTASSIUM CHLORIDE RIDER 10 MEQ in PREMIX 1 EACH IV PRN (16:02)
[2021-02-03] MEDS: ENOXAPARIN 40 MG/0.4 ML SYRINGE SUBCUT SCH (17:12)
[2021-02-04] MEDS: MIDAZOLAM 100 MG in SODIUM CHLORIDE 0.9% 80 ML IV PRN ×2 (03:01→13:45)
[2021-02-04 03:42] LABS: ABG Base Excess -0.1 MMOL/L (-2.5-2.5); ABG HCO3 24.4 MMOL/L (20-26); ABG Oxygen Saturation 98.4 % (95-100); ABG PCO2 42.4 MM HG (35-48); ABG TCO2 22.3 MMOL/L (23-27); Allen Test Positive; Pt O2 Delivery Device Ventilator
[2021-02-04 04:33] LABS: Basophils % 0.1 % (0.0-0.8); Hematocrit 35.4 VOL% (35.7-47.0); Hemoglobin 11.6 GM/DL (12.0-16.0); Immature Granulocytes % 0.3 %; Immature Granulocytes Absolute 0.02 #; Lymphocytes # 1.2 10*3/uL (1.4-4.0); Lymphocytes % 17.7 % (21.3-54.2); Mean Corpuscular HGB Conc 32.8 GM/DL (32-36); Mean Platelet Volume 9.9 FL (9.6-12.0); Monocytes % 7.8 % (1.7-12.7); Neutrophils % 74.1 % (38.7-73.9); Platelet Count 227 T/CUMM (130-400); Red Blood Count 4.07 MC/CUMM (3.8-5.5); Red Cell Distribution Width 15.1 % (9.3-17.3); White Blood Count 6.7 T/CUMM (4-12)
[2021-02-04 04:57] LABS: Calcium 8.5 MG/DL (8.5-10.1); Osmolality,Calculated 276.7 MOS/KG (273-304); Potassium 3.7 MMOL/L (3.5-5.1)
[2021-02-04] MEDS: INSULIN LISPRO 100 UNIT/ML SUBCUT SCH ×3 (06:11→17:33)
[2021-02-04] MEDS: FOSPHENYTOIN 100 MG.PE/2 ML VIAL IV SCH ×2 (08:40→20:51)
[2021-02-04] MEDS: TOPIRAMATE 100 MG TABLET PO SCH (08:41)
[2021-02-04] MEDS: carBAMazepine 200 MG TABLET PO SCH ×2 (08:41→20:51)
[2021-02-04] MEDS: ESTRADIOL 1 MG TABLET PO SCH (08:41)
[2021-02-04] MEDS: CETIRIZINE 10 MG TABLET PO SCH (08:42)
[2021-02-04] MEDS: GABAPENTIN 400 MG CAPSULE PO SCH ×2 (08:42→20:51)
[2021-02-04] MEDS: PANTOPRAZOLE 40 MG VIAL IV SCH (08:43)
[2021-02-04] MEDS ORDERED: FUROSEMIDE 40 MG/4 ML VIAL IV ONE (09:41)
[2021-02-04] MEDS: ENOXAPARIN 40 MG/0.4 ML SYRINGE SUBCUT SCH (18:09)
[2021-02-05] MEDS: INSULIN LISPRO 100 UNIT/ML SUBCUT SCH ×4 (00:32→17:58)
[2021-02-05] MEDS: MIDAZOLAM 100 MG in SODIUM CHLORIDE 0.9% 80 ML IV PRN ×2 (03:16→15:14)
[2021-02-05 04:19] LABS: ABG Base Excess 0.4 MMOL/L (-2.5-2.5); ABG HCO3 24.8 MMOL/L (20-26); ABG Oxygen Saturation 98.2 % (95-100); ABG PCO2 39.3 MM HG (35-48); ABG TCO2 22.1 MMOL/L (23-27); Allen Test Positive; Pt O2 Delivery Device Ventilator
[2021-02-05 04:59] LABS: Basophils % 0.1 % (0.0-0.8); Hematocrit 35.3 VOL% (35.7-47.0); Hemoglobin 11.9 GM/DL (12.0-16.0); Immature Granulocytes % 0.2 %; Immature Granulocytes Absolute 0.02 #; Lymphocytes # 1.4 10*3/uL (1.4-4.0); Lymphocytes % 17.2 % (21.3-54.2); Mean Corpuscular HGB Conc 33.7 GM/DL (32-36); Mean Corpuscular Volume 84.9 FL (87-102); Mean Platelet Volume 10.1 FL (9.6-12.0); Monocytes % 6.6 % (1.7-12.7); Neutrophils % 75.9 % (38.7-73.9); Platelet Count 242 T/CUMM (130-400); Red Blood Count 4.16 MC/CUMM (3.8-5.5); Red Cell Distribution Width 15.4 % (9.3-17.3); White Blood Count 8.3 T/CUMM (4-12)
[2021-02-05 05:19] LABS: Calcium 8.5 MG/DL (8.5-10.1); Osmolality,Calculated 282.1 MOS/KG (273-304); Potassium 3.4 MMOL/L (3.5-5.1)
[2021-02-05] MEDS: ESTRADIOL 1 MG TABLET PO SCH (09:12)
[2021-02-05] MEDS: TOPIRAMATE 100 MG TABLET PO SCH (09:12)
[2021-02-05] MEDS: GABAPENTIN 400 MG CAPSULE PO SCH ×2 (09:12→20:56)
[2021-02-05] MEDS: carBAMazepine 200 MG TABLET PO SCH (09:13)
[2021-02-05] MEDS: PANTOPRAZOLE 40 MG VIAL IV SCH (09:13)
[2021-02-05] MEDS: CETIRIZINE 10 MG TABLET PO SCH (09:13)
[2021-02-05] MEDS: FOSPHENYTOIN 100 MG.PE/2 ML VIAL IV SCH (09:26)
[2021-02-05] MEDS: POTASSIUM CHLORIDE RIDER 20 MEQ in PREMIX 1 EACH IV PRN (12:30)
[2021-02-05] MEDS: POTASSIUM CHLORIDE RIDER 10 MEQ in PREMIX 1 EACH IV PRN (14:47)
[2021-02-05] MEDS: ACETAMINOPHEN 325 MG TABLET PO PRN (16:50)
[2021-02-05] MEDS: PHENYTOIN 100 MG/2 ML VIAL IV SCH (16:54)
[2021-02-05] MEDS: ENOXAPARIN 40 MG/0.4 ML SYRINGE SUBCUT SCH (17:58)
[2021-02-06] MEDS: INSULIN LISPRO 100 UNIT/ML SUBCUT SCH ×4 (01:10→17:54)
[2021-02-06] MEDS: PHENYTOIN 100 MG/2 ML VIAL IV SCH ×3 (01:11→16:57)
[2021-02-06 04:17] LABS: Basophils % 0.2 % (0.0-0.8); Hematocrit 33.6 VOL% (35.7-47.0); Immature Granulocytes % 0.2 %; Immature Granulocytes Absolute 0.02 #; Lymphocytes # 1.6 10*3/uL (1.4-4.0); Mean Corpuscular HGB Conc 32.7 GM/DL (32-36); Mean Corpuscular Volume 86.4 FL (87-102); Monocytes % 9.5 % (1.7-12.7); Neutrophils % 71.1 % (38.7-73.9); Platelet Count 231 T/CUMM (130-400); Red Blood Count 3.89 MC/CUMM (3.8-5.5); Red Cell Distribution Width 15.6 % (9.3-17.3); White Blood Count 8.2 T/CUMM (4-12)
[2021-02-06 04:37] LABS: Calcium 8.2 MG/DL (8.5-10.1); Potassium 3.6 MMOL/L (3.5-5.1)
[2021-02-06 04:39] LABS: Allen Test Positive; Pt O2 Delivery Device Ventilator
[2021-02-06 04:46] LABS: ABG Base Excess 0.7 MMOL/L (-2.5-2.5); ABG Oxygen Saturation 98.9 % (95-100); ABG PCO2 37.3 MM HG (35-48)
[2021-02-06] MEDS: MIDAZOLAM 100 MG in SODIUM CHLORIDE 0.9% 80 ML IV PRN (05:55)
[2021-02-06] MEDS: GABAPENTIN 400 MG CAPSULE PO SCH ×2 (08:19→20:43)
[2021-02-06] MEDS: CETIRIZINE 10 MG TABLET PO SCH (08:20)
[2021-02-06] MEDS: TOPIRAMATE 100 MG TABLET PO SCH (08:20)
[2021-02-06] MEDS: ESTRADIOL 1 MG TABLET PO SCH (08:20)
[2021-02-06] MEDS: PANTOPRAZOLE 40 MG VIAL IV SCH (08:21)
[2021-02-06] MEDS: POTASSIUM CHLORIDE RIDER 20 MEQ in PREMIX 1 EACH IV PRN (09:02)
[2021-02-06] MEDS: CLINDAMYCIN INJ 600 MG in PREMIX 1 EACH IV SCH ×2 (10:29→18:00)
[2021-02-06] MEDS: ENOXAPARIN 40 MG/0.4 ML SYRINGE SUBCUT SCH (17:59)
[2021-02-07] MEDS: PHENYTOIN 100 MG/2 ML VIAL IV SCH ×5 (00:14→23:15)
[2021-02-07] MEDS: INSULIN LISPRO 100 UNIT/ML SUBCUT SCH ×5 (00:14→23:59)
[2021-02-07] MEDS: CLINDAMYCIN INJ 600 MG in PREMIX 1 EACH IV SCH ×2 (02:11→10:07)
[2021-02-07 04:55] LABS: Basophils % 0.2 % (0.0-0.8); Hematocrit 31.9 VOL% (35.7-47.0); Hemoglobin 10.6 GM/DL (12.0-16.0); Immature Granulocytes % 0.4 %; Immature Granulocytes Absolute 0.03 #; Lymphocytes # 1.3 10*3/uL (1.4-4.0); Lymphocytes % 15.4 % (21.3-54.2); Mean Corpuscular HGB Conc 33.2 GM/DL (32-36); Mean Corpuscular Volume 85.8 FL (87-102); Mean Platelet Volume 9.6 FL (9.6-12.0); Monocytes % 10.4 % (1.7-12.7); Neutrophils % 73.6 % (38.7-73.9); Platelet Count 226 T/CUMM (130-400); Red Blood Count 3.72 MC/CUMM (3.8-5.5); Red Cell Distribution Width 15.4 % (9.3-17.3); White Blood Count 8.2 T/CUMM (4-12)
[2021-02-07 05:23] LABS: Calcium 8.7 MG/DL (8.5-10.1); Osmolality,Calculated 282.4 MOS/KG (273-304); Potassium 3.8 MMOL/L (3.5-5.1)
[2021-02-07 05:32] LABS: ABG Base Excess 0.1 MMOL/L (-2.5-2.5); ABG HCO3 24.5 MMOL/L (20-26); ABG Oxygen Saturation 98.3 % (95-100); ABG PCO2 41.9 MM HG (35-48); ABG PH 7.386 (7.35-7.45); ABG TCO2 22.7 MMOL/L (23-27)
[2021-02-07] MEDS: TOPIRAMATE 100 MG TABLET PO SCH (09:10)
[2021-02-07] MEDS: POTASSIUM CHLORIDE RIDER 20 MEQ in PREMIX 1 EACH IV PRN (09:10)
[2021-02-07] MEDS: ESTRADIOL 1 MG TABLET PO SCH (09:10)
[2021-02-07] MEDS: GABAPENTIN 400 MG CAPSULE PO SCH ×2 (09:10→20:36)
[2021-02-07] MEDS: PANTOPRAZOLE 40 MG VIAL IV SCH (09:11)
[2021-02-07] MEDS: CETIRIZINE 10 MG TABLET PO SCH (09:11)
[2021-02-07] MEDS ORDERED: PHENYTOIN INJ 1,000 MG in SODIUM CHLORIDE 0.9% 100 ML IV ONE (11:43)
[2021-02-07] MEDS: cefTRIAXone 1,000 MG in SYRINGE 1 EACH IV SCH (14:08)
[2021-02-07] MEDS: ACETAMINOPHEN 325 MG TABLET PO PRN (16:29)
[2021-02-07] MEDS: ENOXAPARIN 40 MG/0.4 ML SYRINGE SUBCUT SCH (17:47)
[2021-02-08 03:22] LABS: ABG Base Excess -0.1 MMOL/L (-2.5-2.5); ABG HCO3 24.4 MMOL/L (20-26); ABG PCO2 43.9 MM HG (35-48); ABG TCO2 22.9 MMOL/L (23-27); Allen Test Positive
[2021-02-08 04:20] LABS: Basophils % 0.1 % (0.0-0.8); Hematocrit 31.7 VOL% (35.7-47.0); Hemoglobin 10.3 GM/DL (12.0-16.0); Immature Granulocytes % 0.6 %; Immature Granulocytes Absolute 0.04 #; Lymphocytes # 1.4 10*3/uL (1.4-4.0); Lymphocytes % 20.1 % (21.3-54.2); Mean Corpuscular HGB Conc 32.5 GM/DL (32-36); Mean Corpuscular Volume 86.8 FL (87-102); Mean Platelet Volume 9.7 FL (9.6-12.0); Monocytes % 10.7 % (1.7-12.7); Neutrophils % 68.5 % (38.7-73.9); Platelet Count 236 T/CUMM (130-400); Red Blood Count 3.65 MC/CUMM (3.8-5.5); Red Cell Distribution Width 15.4 % (9.3-17.3); White Blood Count 6.8 T/CUMM (4-12)
[2021-02-08] MEDS: PHENYTOIN 100 MG/2 ML VIAL IV SCH ×4 (04:30→23:55)
[2021-02-08 04:39] LABS: Calcium 8.8 MG/DL (8.5-10.1); Osmolality,Calculated 285.1 MOS/KG (273-304); Potassium 3.8 MMOL/L (3.5-5.1)
[2021-02-08 04:42] LABS: Alanine Aminotransferase 28 U/L (13-56); Albumin 2.2 G/DL (3.4-5.0); Alkaline Phosphatase 155 U/L (45-117); Aspartate Amino Transferase 29 U/L (0-37); Bilirubin,Total < 0.39 MG/DL (0.2-1.0); Blood Urea Nitrogen 15 MG/DL (7-18); Calcium 8.9 MG/DL (8.5-10.1); Carbon Dioxide 25 MMOL/L (21-32); Estimated Glom Filtration Rate 111 ML/MIN; Glucose 144 MG/DL (74-106); Osmolality,Calculated 286.1 MOS/KG (273-304); Potassium 3.8 MMOL/L (3.5-5.1); Sodium 142 MMOL/L (136-145); Total Protein 7.2 G/DL (6.4-8.2)
[2021-02-08] MEDS: INSULIN LISPRO 100 UNIT/ML SUBCUT SCH ×3 (05:03→17:45)
[2021-02-08] MEDS: PANTOPRAZOLE 40 MG VIAL IV SCH (08:05)
[2021-02-08] MEDS: ESTRADIOL 1 MG TABLET PO SCH (08:05)
[2021-02-08] MEDS: CETIRIZINE 10 MG TABLET PO SCH (08:05)
[2021-02-08] MEDS: GABAPENTIN 400 MG CAPSULE PO SCH (08:05)
[2021-02-08] MEDS: TOPIRAMATE 100 MG TABLET PO SCH (08:08)
[2021-02-08] MEDS: cefTRIAXone 1,000 MG in SYRINGE 1 EACH IV SCH (12:26)
[2021-02-08] MEDS ORDERED: FUROSEMIDE 40 MG/4 ML VIAL IV ONE (13:49)
[2021-02-08] MEDS: POLYETHYLENE GLYCOL POWDER 17 GM PACK PO SCH (15:12)
[2021-02-08] MEDS: ACETAMINOPHEN 325 MG TABLET PO PRN (15:13)
[2021-02-08] MEDS: ENOXAPARIN 40 MG/0.4 ML SYRINGE SUBCUT SCH (17:16)
[2021-02-09] MEDS: INSULIN LISPRO 100 UNIT/ML SUBCUT SCH ×4 (00:42→17:33)
[2021-02-09 03:42] LABS: ABG Base Excess 2.9 MMOL/L (-2.5-2.5); ABG Oxygen Saturation 97.9 % (95-100); ABG PCO2 43.6 MM HG (35-48); ABG PH 7.415 (7.35-7.45); ABG TCO2 24.1 MMOL/L (23-27)
[2021-02-09 04:49] LABS: Basophils % 0.3 % (0.0-0.8); Hematocrit 31.2 VOL% (35.7-47.0); Hemoglobin 10.5 GM/DL (12.0-16.0); Immature Granulocytes % 0.6 %; Immature Granulocytes Absolute 0.04 #; Lymphocytes # 1.3 10*3/uL (1.4-4.0); Lymphocytes % 20.5 % (21.3-54.2); Mean Corpuscular HGB Conc 33.7 GM/DL (32-36); Mean Corpuscular Volume 84.3 FL (87-102); Mean Platelet Volume 9.8 FL (9.6-12.0); Monocytes % 11.8 % (1.7-12.7); Neutrophils % 66.8 % (38.7-73.9); Platelet Count 262 T/CUMM (130-400); Red Cell Distribution Width 15.4 % (9.3-17.3); White Blood Count 6.3 T/CUMM (4-12)
[2021-02-09 05:10] LABS: Calcium 8.9 MG/DL (8.5-10.1); Potassium 3.7 MMOL/L (3.5-5.1)
[2021-02-09] MEDS: PHENYTOIN 100 MG/2 ML VIAL IV SCH ×3 (05:13→17:26)
[2021-02-09] MEDS ORDERED: FUROSEMIDE 40 MG/4 ML VIAL IV ONE (08:17)
[2021-02-09] MEDS: TOPIRAMATE 100 MG TABLET PO SCH (08:51)
[2021-02-09] MEDS: CETIRIZINE 10 MG TABLET PO SCH (08:51)
[2021-02-09] MEDS: ESTRADIOL 1 MG TABLET PO SCH (08:51)
[2021-02-09] MEDS: POLYETHYLENE GLYCOL POWDER 17 GM PACK PO SCH (08:52)
[2021-02-09] MEDS: PANTOPRAZOLE 40 MG VIAL IV SCH (08:52)
[2021-02-09 11:34] LABS: Levetiracetam (Keppra) 16.9 mcg/mL
[2021-02-09] MEDS: cefTRIAXone 1,000 MG in SYRINGE 1 EACH IV SCH (14:40)
[2021-02-09] MEDS: DOCUSATE SODIUM 100 MG/10 ML UDCUP PO SCH ×2 (14:40→20:23)
[2021-02-09 16:11] LABS: Phenytoin Free Serum 1.8 mcg/mL (1.0 - 2.0); Phenytoin Total Serum (MAYO) 9.4 mcg/mL
[2021-02-09] MEDS: ENOXAPARIN 40 MG/0.4 ML SYRINGE SUBCUT SCH (18:22)
[2021-02-10] MEDS: PHENYTOIN 100 MG/2 ML VIAL IV SCH ×4 (00:47→17:25)
[2021-02-10] MEDS: INSULIN LISPRO 100 UNIT/ML SUBCUT SCH ×4 (00:54→17:41)
[2021-02-10 04:13] LABS: Basophils % 0.3 % (0.0-0.8); Hematocrit 31.6 VOL% (35.7-47.0); Hemoglobin 10.5 GM/DL (12.0-16.0); Immature Granulocytes % 0.9 %; Immature Granulocytes Absolute 0.06 #; Lymphocytes # 1.2 10*3/uL (1.4-4.0); Lymphocytes % 17.7 % (21.3-54.2); Mean Corpuscular HGB Conc 33.2 GM/DL (32-36); Mean Corpuscular Volume 85.6 FL (87-102); Mean Platelet Volume 9.5 FL (9.6-12.0); Monocytes % 10.5 % (1.7-12.7); Neutrophils % 70.6 % (38.7-73.9); Platelet Count 285 T/CUMM (130-400); Red Blood Count 3.69 MC/CUMM (3.8-5.5); Red Cell Distribution Width 15.2 % (9.3-17.3); White Blood Count 6.5 T/CUMM (4-12)
[2021-02-10 04:25] LABS: Calcium 9.2 MG/DL (8.5-10.1); Potassium 3.8 MMOL/L (3.5-5.1)
[2021-02-10 04:37] LABS: ABG Base Excess 2.9 MMOL/L (-2.5-2.5); ABG Oxygen Saturation 97.7 % (95-100); ABG PCO2 45.2 MM HG (35-48); ABG PH 7.403 (7.35-7.45); ABG TCO2 25.1 MMOL/L (23-27); Allen Test Positive; Pt O2 Delivery Device Ventilator
[2021-02-10] MEDS: POTASSIUM CHLORIDE RIDER 20 MEQ in PREMIX 1 EACH IV PRN (05:49)
[2021-02-10] MEDS: TOPIRAMATE 100 MG TABLET PO SCH (08:56)
[2021-02-10] MEDS: ESTRADIOL 1 MG TABLET PO SCH (08:57)
[2021-02-10] MEDS: DOCUSATE SODIUM 100 MG/10 ML UDCUP PO SCH ×2 (08:57→20:25)
[2021-02-10] MEDS: CETIRIZINE 10 MG TABLET PO SCH (08:57)
[2021-02-10] MEDS: PANTOPRAZOLE 40 MG VIAL IV SCH (08:57)
[2021-02-10] MEDS: POLYETHYLENE GLYCOL POWDER 17 GM PACK PO SCH (08:58)
[2021-02-10] MEDS: cefTRIAXone 1,000 MG in SYRINGE 1 EACH IV SCH (12:44)
[2021-02-10] MEDS: LORazepam 2 MG/1 ML VIAL IV PRN (14:13)
[2021-02-10] MEDS: ENOXAPARIN 40 MG/0.4 ML SYRINGE SUBCUT SCH (17:41)
[2021-02-11] MEDS: PHENYTOIN 100 MG/2 ML VIAL IV SCH ×4 (00:11→17:41)
[2021-02-11] MEDS: INSULIN LISPRO 100 UNIT/ML SUBCUT SCH ×4 (00:11→17:42)
[2021-02-11 04:36] LABS: ABG Base Excess 3.2 MMOL/L (-2.5-2.5); ABG HCO3 28.2 MMOL/L (20-26); ABG Oxygen Saturation 96.5 % (95-100); ABG PCO2 44.6 MM HG (35-48); ABG PH 7.419 (7.35-7.45); ABG TCO2 29.6 MMOL/L (23-27); Allen Test Positive; Pt O2 Delivery Device Ventilator
[2021-02-11 05:09] LABS: Basophils % 0.3 % (0.0-0.8); Hemoglobin 10.2 GM/DL (12.0-16.0); Immature Granulocytes % 1.6 %; Lymphocytes # 1.2 10*3/uL (1.4-4.0); Lymphocytes % 18.8 % (21.3-54.2); Mean Corpuscular HGB Conc 31.9 GM/DL (32-36); Mean Corpuscular Volume 88.4 FL (87-102); Mean Platelet Volume 9.8 FL (9.6-12.0); Monocytes % 11.2 % (1.7-12.7); Neutrophils % 68.1 % (38.7-73.9); Platelet Count 317 T/CUMM (130-400); Red Blood Count 3.62 MC/CUMM (3.8-5.5); Red Cell Distribution Width 15.3 % (9.3-17.3); White Blood Count 6.2 T/CUMM (4-12)
[2021-02-11 05:24] LABS: Calcium 9.3 MG/DL (8.5-10.1); Osmolality,Calculated 293.7 MOS/KG (273-304); Potassium 3.6 MMOL/L (3.5-5.1)
[2021-02-11] MEDS: POTASSIUM CHLORIDE RIDER 20 MEQ in PREMIX 1 EACH IV PRN (06:06)
[2021-02-11] MEDS: PANTOPRAZOLE 40 MG VIAL IV SCH (08:55)
[2021-02-11] MEDS: TOPIRAMATE 100 MG TABLET PO SCH (08:55)
[2021-02-11] MEDS: CETIRIZINE 10 MG TABLET PO SCH (08:55)
[2021-02-11] MEDS: DOCUSATE SODIUM 100 MG/10 ML UDCUP PO SCH ×2 (08:55→20:03)
[2021-02-11] MEDS: POLYETHYLENE GLYCOL POWDER 17 GM PACK PO SCH (08:55)
[2021-02-11] MEDS: ESTRADIOL 1 MG TABLET PO SCH (08:55)
[2021-02-11] MEDS: cefTRIAXone 1,000 MG in SYRINGE 1 EACH IV SCH (12:08)
[2021-02-11] MEDS: FUROSEMIDE 40 MG/4 ML VIAL IV SCH (16:25)
[2021-02-11] MEDS: ENOXAPARIN 40 MG/0.4 ML SYRINGE SUBCUT SCH (18:14)
[2021-02-12] MEDS: PHENYTOIN 100 MG/2 ML VIAL IV SCH ×5 (00:05→23:49)
[2021-02-12] MEDS: INSULIN LISPRO 100 UNIT/ML SUBCUT SCH ×5 (00:05→23:49)
[2021-02-12 04:34] LABS: Basophils % 0.3 % (0.0-0.8); Hematocrit 32.8 VOL% (35.7-47.0); Hemoglobin 10.4 GM/DL (12.0-16.0); Immature Granulocytes % 1.2 %; Immature Granulocytes Absolute 0.09 #; Lymphocytes # 1.5 10*3/uL (1.4-4.0); Lymphocytes % 20.6 % (21.3-54.2); Mean Corpuscular HGB Conc 31.7 GM/DL (32-36); Mean Corpuscular Volume 87.5 FL (87-102); Mean Platelet Volume 9.2 FL (9.6-12.0); Monocytes % 9.2 % (1.7-12.7); Neutrophils % 68.7 % (38.7-73.9); Platelet Count 318 T/CUMM (130-400); Red Blood Count 3.75 MC/CUMM (3.8-5.5); Red Cell Distribution Width 15.4 % (9.3-17.3); White Blood Count 7.3 T/CUMM (4-12)
[2021-02-12 04:48] LABS: Osmolality,Calculated 297.4 MOS/KG (273-304); Potassium 3.6 MMOL/L (3.5-5.1)
[2021-02-12 04:51] LABS: ABG Base Excess 5.3 MMOL/L (-2.5-2.5); ABG HCO3 30.7 MMOL/L (20-26); ABG PCO2 48.9 MM HG (35-48); ABG PH 7.416 (7.35-7.45); ABG PO2 101.9 MM HG (80-95); ABG TCO2 32.2 MMOL/L (23-27); Allen Test Positive; Pt O2 Delivery Device Ventilator
[2021-02-12] MEDS: PANTOPRAZOLE 40 MG VIAL IV SCH (08:43)
[2021-02-12] MEDS: DOCUSATE SODIUM 100 MG/10 ML UDCUP PO SCH ×2 (08:43→20:41)
[2021-02-12] MEDS: POLYETHYLENE GLYCOL POWDER 17 GM PACK PO SCH (08:44)
[2021-02-12] MEDS: ESTRADIOL 1 MG TABLET PO SCH (08:44)
[2021-02-12] MEDS: CETIRIZINE 10 MG TABLET PO SCH (08:44)
[2021-02-12] MEDS: TOPIRAMATE 100 MG TABLET PO SCH (08:44)
[2021-02-12] MEDS: FUROSEMIDE 40 MG/4 ML VIAL IV SCH ×2 (08:44→17:07)
[2021-02-12] MEDS: POTASSIUM CHLORIDE 20 MEQ/15 ML UDCUP PER TUBE SCH (11:18)
[2021-02-12] MEDS: cefTRIAXone 1,000 MG in SYRINGE 1 EACH IV SCH (13:36)
[2021-02-12 14:14] LABS: ABG HCO3 27.9 MMOL/L (20-26); ABG Oxygen Saturation 93.1 % (95-100); ABG PCO2 47.1 MM HG (35-48); ABG PH 7.405 (7.35-7.45); ABG PO2 71.9 MM HG (80-95); ABG TCO2 26.4 MMOL/L (23-27); Pt O2 Delivery Device Other
[2021-02-12] MEDS ORDERED: ALBUTEROL/IPRATROPIUM 3 ML NEB RESP TX PRN (14:36)
[2021-02-12] MEDS: ENOXAPARIN 40 MG/0.4 ML SYRINGE SUBCUT SCH (17:07)
[2021-02-12] MEDS: NYSTATIN 500,000 UNIT/5 ML UDCUP SWISH/SWAL SCH ×2 (17:07→20:41)
[2021-02-12] MEDS: NYSTATIN POWDER 15 GM BOTTLE TOP SCH (20:41)
[2021-02-13] MEDS: ALBUTEROL/IPRATROPIUM 3 ML NEB RESP TX SCH ×5 (00:16→18:32)
[2021-02-13 04:24] LABS: ABG Base Excess 4.5 MMOL/L (-2.5-2.5); ABG HCO3 28.4 MMOL/L (20-26); ABG Oxygen Saturation 96.6 % (95-100); ABG PH 7.387 (7.35-7.45); ABG PO2 93.1 MM HG (80-95); ABG TCO2 27.3 MMOL/L (23-27)
[2021-02-13] MEDS: PHENYTOIN 100 MG/2 ML VIAL IV SCH ×4 (04:30→23:59)
[2021-02-13 04:34] LABS: Basophils % 0.2 % (0.0-0.8); Hematocrit 34.4 VOL% (35.7-47.0); Hemoglobin 10.9 GM/DL (12.0-16.0); Immature Granulocytes % 1.2 %; Lymphocytes # 1.4 10*3/uL (1.4-4.0); Lymphocytes % 17.1 % (21.3-54.2); Mean Corpuscular HGB Conc 31.7 GM/DL (32-36); Mean Corpuscular Volume 88.4 FL (87-102); Mean Platelet Volume 9.2 FL (9.6-12.0); Monocytes % 8.6 % (1.7-12.7); Neutrophils % 72.9 % (38.7-73.9); Platelet Count 362 T/CUMM (130-400); Red Blood Count 3.89 MC/CUMM (3.8-5.5); Red Cell Distribution Width 15.3 % (9.3-17.3); White Blood Count 8.4 T/CUMM (4-12)
[2021-02-13 04:47] LABS: Calcium 9.3 MG/DL (8.5-10.1); Potassium 3.5 MMOL/L (3.5-5.1)
[2021-02-13] MEDS: INSULIN LISPRO 100 UNIT/ML SUBCUT SCH ×4 (05:00→23:59)
[2021-02-13] MEDS: PANTOPRAZOLE 40 MG VIAL IV SCH (08:19)
[2021-02-13] MEDS: ESTRADIOL 1 MG TABLET PO SCH ×2 (08:19→17:22)
[2021-02-13] MEDS: CETIRIZINE 10 MG TABLET PO SCH ×2 (08:20→17:22)
[2021-02-13] MEDS: POTASSIUM CHLORIDE 20 MEQ/15 ML UDCUP PER TUBE SCH ×2 (08:20→17:22)
[2021-02-13] MEDS: TOPIRAMATE 100 MG TABLET PO SCH ×2 (08:20→17:22)
[2021-02-13] MEDS: NYSTATIN 500,000 UNIT/5 ML UDCUP SWISH/SWAL SCH ×4 (08:21→20:50)
[2021-02-13] MEDS: FUROSEMIDE 40 MG/4 ML VIAL IV SCH (08:41)
[2021-02-13] MEDS: DOCUSATE SODIUM 100 MG/10 ML UDCUP PO SCH ×2 (08:43→20:50)
[2021-02-13] MEDS: NYSTATIN POWDER 15 GM BOTTLE TOP SCH ×2 (08:43→20:51)
[2021-02-13] MEDS: POLYETHYLENE GLYCOL POWDER 17 GM PACK PO SCH (08:43)
[2021-02-13] MEDS ORDERED: HALOPERIDOL 5 MG/ML AMP IM ONE (10:38)
[2021-02-13] MEDS ORDERED: LORazepam 2 MG/1 ML VIAL IV ONE (10:38)
[2021-02-13] MEDS ORDERED: HALOPERIDOL 5 MG/ML AMP ONE (10:41)
[2021-02-13] MEDS: cefTRIAXone 1,000 MG in SYRINGE 1 EACH IV SCH (13:22)
[2021-02-13] MEDS ORDERED: HALOPERIDOL 5 MG/ML AMP IM PRN (13:24)
[2021-02-13] MEDS ORDERED: LORazepam 2 MG/1 ML VIAL IV PRN (13:24)
[2021-02-13] MEDS: ENOXAPARIN 40 MG/0.4 ML SYRINGE SUBCUT SCH (17:06)
[2021-02-14] MEDS: ALBUTEROL/IPRATROPIUM 3 ML NEB RESP TX SCH ×4 (00:31→19:48)
[2021-02-14 03:00] LABS: ABG Base Excess 5.5 MMOL/L (-2.5-2.5); ABG HCO3 29.3 MMOL/L (20-26); ABG Oxygen Saturation 95.4 % (95-100); ABG PCO2 45.6 MM HG (35-48); ABG PH 7.434 (7.35-7.45); ABG PO2 79.3 MM HG (80-95); ABG TCO2 27.3 MMOL/L (23-27); Allen Test Positive; Pt O2 Delivery Device Venturi Mask
[2021-02-14 04:27] LABS: Basophils % 0.2 % (0.0-0.8); Hematocrit 34.4 VOL% (35.7-47.0); Hemoglobin 10.9 GM/DL (12.0-16.0); Immature Granulocytes Absolute 0.08 #; Lymphocytes # 1.8 10*3/uL (1.4-4.0); Lymphocytes % 21.2 % (21.3-54.2); Mean Corpuscular HGB Conc 31.7 GM/DL (32-36); Mean Corpuscular Volume 88.4 FL (87-102); Mean Platelet Volume 9.2 FL (9.6-12.0); Monocytes % 7.7 % (1.7-12.7); Neutrophils % 69.9 % (38.7-73.9); Platelet Count 350 T/CUMM (130-400); Red Blood Count 3.89 MC/CUMM (3.8-5.5); Red Cell Distribution Width 15.3 % (9.3-17.3); White Blood Count 8.3 T/CUMM (4-12)
[2021-02-14] MEDS: PHENYTOIN 100 MG/2 ML VIAL IV SCH ×2 (04:46→12:20)
[2021-02-14 04:51] LABS: Osmolality,Calculated 296.6 MOS/KG (273-304)
[2021-02-14] MEDS: POTASSIUM CHLORIDE RIDER 20 MEQ in PREMIX 1 EACH IV PRN ×2 (05:08→07:30)
[2021-02-14] MEDS: INSULIN LISPRO 100 UNIT/ML SUBCUT SCH ×3 (05:09→17:55)
[2021-02-14] MEDS: PANTOPRAZOLE 40 MG VIAL IV SCH (09:04)
[2021-02-14] MEDS: CETIRIZINE 10 MG TABLET PO SCH (09:05)
[2021-02-14] MEDS: NYSTATIN 500,000 UNIT/5 ML UDCUP SWISH/SWAL SCH ×4 (09:05→20:55)
[2021-02-14] MEDS: TOPIRAMATE 100 MG TABLET PO SCH (09:05)
[2021-02-14] MEDS: POTASSIUM CHLORIDE 20 MEQ/15 ML UDCUP PER TUBE SCH (09:05)
[2021-02-14] MEDS: ESTRADIOL 1 MG TABLET PO SCH (09:05)
[2021-02-14] MEDS: POLYETHYLENE GLYCOL POWDER 17 GM PACK PO SCH (09:06)
[2021-02-14] MEDS: DOCUSATE SODIUM 100 MG/10 ML UDCUP PO SCH ×2 (09:06→20:30)
[2021-02-14] MEDS: NYSTATIN POWDER 15 GM BOTTLE TOP SCH ×2 (09:09→20:55)
[2021-02-14] MEDS: METOPROLOL TARTRATE 50 MG TABLET PO SCH ×2 (09:09→20:55)
[2021-02-14] MEDS: MONTELUKAST 10 MG TABLET PO SCH (09:10)
[2021-02-14] MEDS: POTASSIUM CHLORIDE RIDER 10 MEQ in PREMIX 1 EACH IV PRN (10:00)
[2021-02-14] MEDS: cefTRIAXone 1,000 MG in SYRINGE 1 EACH IV SCH (12:20)
[2021-02-14] MEDS: ENOXAPARIN 40 MG/0.4 ML SYRINGE SUBCUT SCH (18:36)
[2021-02-14] MEDS: PHENYTOIN ER 100 MG CAPSULE PO SCH (20:54)
[2021-02-15] MEDS: ALBUTEROL/IPRATROPIUM 3 ML NEB RESP TX SCH ×4 (00:40→19:38)
[2021-02-15] MEDS: INSULIN LISPRO 100 UNIT/ML SUBCUT SCH ×4 (00:45→18:41)
[2021-02-15 04:37] LABS: Basophils % 0.3 % (0.0-0.8); Hematocrit 32.9 VOL% (35.7-47.0); Hemoglobin 10.6 GM/DL (12.0-16.0); Immature Granulocytes % 0.9 %; Immature Granulocytes Absolute 0.06 #; Lymphocytes # 1.5 10*3/uL (1.4-4.0); Lymphocytes % 23.7 % (21.3-54.2); Mean Corpuscular HGB Conc 32.2 GM/DL (32-36); Mean Corpuscular Volume 87.5 FL (87-102); Mean Platelet Volume 9.3 FL (9.6-12.0); Monocytes % 8.8 % (1.7-12.7); Neutrophils % 66.3 % (38.7-73.9); Platelet Count 341 T/CUMM (130-400); Red Blood Count 3.76 MC/CUMM (3.8-5.5); Red Cell Distribution Width 14.8 % (9.3-17.3); White Blood Count 6.5 T/CUMM (4-12)
[2021-02-15 05:15] LABS: Alanine Aminotransferase 73 U/L (13-56); Albumin 2.5 G/DL (3.4-5.0); Alkaline Phosphatase 188 U/L (45-117); Aspartate Amino Transferase 49 U/L (0-37); Bilirubin,Total < 0.39 MG/DL (0.2-1.0); Blood Urea Nitrogen 10 MG/DL (7-18); Carbon Dioxide 28 MMOL/L (21-32); Estimated Glom Filtration Rate 148 ML/MIN; Glucose 148 MG/DL (74-106); Potassium 3.2 MMOL/L (3.5-5.1); Sodium 143 MMOL/L (136-145); Total Protein 7.1 G/DL (6.4-8.2)
[2021-02-15] MEDS: PHENYTOIN ER 100 MG CAPSULE PO SCH ×2 (08:55→20:41)
[2021-02-15] MEDS: TOPIRAMATE 100 MG TABLET PO SCH (08:55)
[2021-02-15] MEDS: METOPROLOL TARTRATE 50 MG TABLET PO SCH ×2 (08:55→20:41)
[2021-02-15] MEDS: CETIRIZINE 10 MG TABLET PO SCH (08:55)
[2021-02-15] MEDS: ACETAMINOPHEN 325 MG TABLET PO PRN (08:56)
[2021-02-15] MEDS: ESTRADIOL 1 MG TABLET PO SCH (08:57)
[2021-02-15] MEDS: PANTOPRAZOLE 40 MG VIAL IV SCH (08:57)
[2021-02-15] MEDS: MONTELUKAST 10 MG TABLET PO SCH (08:57)
[2021-02-15] MEDS: NYSTATIN 500,000 UNIT/5 ML UDCUP SWISH/SWAL SCH ×4 (08:59→20:40)
[2021-02-15] MEDS: POTASSIUM CHLORIDE 20 MEQ/15 ML UDCUP PER TUBE SCH ×2 (08:59→20:41)
[2021-02-15] MEDS: POLYETHYLENE GLYCOL POWDER 17 GM PACK PO SCH (09:00)
[2021-02-15] MEDS: DOCUSATE SODIUM 100 MG/10 ML UDCUP PO SCH ×2 (09:00→20:40)
[2021-02-15] MEDS: POTASSIUM CHLORIDE RIDER 20 MEQ in PREMIX 1 EACH IV PRN ×2 (09:02→16:42)
[2021-02-15] MEDS: NYSTATIN POWDER 15 GM BOTTLE TOP SCH ×2 (09:05→20:41)
[2021-02-15] MEDS: cefTRIAXone 1,000 MG in SYRINGE 1 EACH IV SCH (09:05)
[2021-02-15] MEDS: ENOXAPARIN 40 MG/0.4 ML SYRINGE SUBCUT SCH (18:41)
[2021-02-16] MEDS: ALBUTEROL/IPRATROPIUM 3 ML NEB RESP TX SCH ×4 (00:22→19:37)
[2021-02-16] MEDS: INSULIN LISPRO 100 UNIT/ML SUBCUT SCH ×4 (00:36→17:50)
[2021-02-16] MEDS: ACETAMINOPHEN 325 MG TABLET PO PRN (02:30)
[2021-02-16 05:53] LABS: Basophils % 0.1 % (0.0-0.8); Hematocrit 35.5 VOL% (35.7-47.0); Hemoglobin 11.2 GM/DL (12.0-16.0); Immature Granulocytes % 1.1 %; Immature Granulocytes Absolute 0.09 #; Lymphocytes # 2.3 10*3/uL (1.4-4.0); Lymphocytes % 27.8 % (21.3-54.2); Mean Corpuscular HGB Conc 31.5 GM/DL (32-36); Mean Corpuscular Volume 88.1 FL (87-102); Mean Platelet Volume 9.8 FL (9.6-12.0); Monocytes % 6.8 % (1.7-12.7); Neutrophils % 64.2 % (38.7-73.9); Platelet Count 375 T/CUMM (130-400); Red Blood Count 4.03 MC/CUMM (3.8-5.5); Red Cell Distribution Width 14.8 % (9.3-17.3); White Blood Count 8.1 T/CUMM (4-12)
[2021-02-16 06:16] LABS: Platelet Estimate Normal
[2021-02-16 06:17] LABS: Anisocytosis Slight; Macrocytosis Slight
[2021-02-16 06:44] LABS: Alanine Aminotransferase 81 U/L (13-56); Albumin 2.9 G/DL (3.4-5.0); Alkaline Phosphatase 213 U/L (45-117); Aspartate Amino Transferase 49 U/L (0-37); Bilirubin,Total < 0.39 MG/DL (0.2-1.0); Blood Urea Nitrogen 11 MG/DL (7-18); Calcium 9.1 MG/DL (8.5-10.1); Carbon Dioxide 24 MMOL/L (21-32); Estimated Glom Filtration Rate 109 ML/MIN; Glucose 140 MG/DL (74-106); Osmolality,Calculated 277.5 MOS/KG (273-304); Potassium 3.4 MMOL/L (3.5-5.1); Sodium 139 MMOL/L (136-145); Total Protein 7.9 G/DL (6.4-8.2)
[2021-02-16] MEDS: POLYETHYLENE GLYCOL POWDER 17 GM PACK PO SCH (09:09)
[2021-02-16] MEDS: PANTOPRAZOLE 40 MG VIAL IV SCH (09:10)
[2021-02-16] MEDS: MONTELUKAST 10 MG TABLET PO SCH (09:10)
[2021-02-16] MEDS: CETIRIZINE 10 MG TABLET PO SCH (09:10)
[2021-02-16] MEDS: ESTRADIOL 1 MG TABLET PO SCH (09:10)
[2021-02-16] MEDS: TOPIRAMATE 100 MG TABLET PO SCH (09:11)
[2021-02-16] MEDS: NYSTATIN 500,000 UNIT/5 ML UDCUP SWISH/SWAL SCH ×4 (09:12→20:53)
[2021-02-16] MEDS: cefTRIAXone 1,000 MG in SYRINGE 1 EACH IV SCH (09:12)
[2021-02-16] MEDS: POTASSIUM CHLORIDE 20 MEQ/15 ML UDCUP PER TUBE SCH ×2 (09:13→22:03)
[2021-02-16] MEDS: METOPROLOL TARTRATE 50 MG TABLET PO SCH ×2 (09:13→20:53)
[2021-02-16] MEDS: DOCUSATE SODIUM 100 MG/10 ML UDCUP PO SCH ×2 (09:13→20:53)
[2021-02-16] MEDS: NYSTATIN POWDER 15 GM BOTTLE TOP SCH ×2 (09:14→22:03)
[2021-02-16] MEDS: PHENYTOIN ER 100 MG CAPSULE PO SCH ×2 (09:32→20:53)
[2021-02-16] MEDS: MENTHOL/ZINC OXIDE OINT 71 GM JAR TOP SCH ×2 (10:04→22:03)
[2021-02-16] MEDS: ENOXAPARIN 40 MG/0.4 ML SYRINGE SUBCUT SCH (17:51)
[2021-02-16 22:41] VITALS: BP 134/73
[2021-02-17] MEDS ORDERED: PANTOPRAZOLE 40 MG TABLET PO SCH (06:30)
== END 2021-02-16 20:55 | DRG 100 ==
LOC: EDBD → EDUNIT# → N.ED 10:07 → N.EDINP 10:07 → SUATTDRO 12:18 → N.5E 13:24 → N.CC 20:54 → SUATTDRO 02-02 09:30 → N.2E 02-15 13:01 → N.5E 02-16 18:47
PROVIDERS: ADMIT Hospitalist; ATTEND Internal Medicine

== ENCOUNTER 2022-05-28 13:30 | Observation (INO) ==
[2022-05-28 15:31] LABS: Alanine Aminotransferase 16 U/L (13-56); Alkaline Phosphatase 152 U/L (45-117); Aspartate Amino Transferase 13 U/L (0-37); Bilirubin,Total < 0.39 MG/DL (0.20-1.00); Blood Urea Nitrogen 10 MG/DL (7-18); Calcium 8.7 MG/DL (8.5-10.1); Carbon Dioxide 25 MMOL/L (21-32); Chloride 110 MMOL/L (98-107); Glucose 116 MG/DL (74-106); Osmolality,Calculated 282.1 MOS/KG (273-304); Potassium 3.9 MMOL/L (3.5-5.1); Sodium 142 MMOL/L (136-145); Total Protein 6.4 G/DL (6.4-8.2)
[2022-05-28] MEDS ORDERED: ALBUTEROL/IPRATROPIUM 3 ML NEB RESP TX STA (16:17)
[2022-05-28 16:22] LABS: Basophils % 0.2 % (0.0-0.8); Hemoglobin 11.6 GM/DL (12.0-16.0); Immature Granulocytes % 0.4 %; Immature Granulocytes Absolute 0.02 #; Lymphocytes # 1.7 10*3/uL (1.4-4.0); Lymphocytes % 34.6 % (21.3-54.2); Mean Corpuscular HGB Conc 33.1 GM/DL (32-36); Mean Corpuscular Volume 92.3 FL (87-102); Mean Platelet Volume 10.3 FL (9.6-12.0); Monocytes # 0.4 10*3/uL (0.11-0.8); Monocytes % 8.2 % (1.7-12.7); Neutrophils % 56.6 % (38.7-73.9); Platelet Count 244 T/CUMM (130-400); Red Blood Count 3.79 MC/CUMM (3.8-5.5); Red Cell Distribution Width 13.7 % (9.3-17.3)
[2022-05-28] MEDS ORDERED: hydrALAZINE 20 MG/1 ML VIAL IV STA (17:30)
[2022-05-28] MEDS ORDERED: ONDANSETRON 4 MG/2 ML VIAL IV PRN (17:48)
[2022-05-28] MEDS ORDERED: hydrALAZINE 20 MG/1 ML VIAL IV PRN (17:48)
[2022-05-28] MEDS ORDERED: GLUCAGON 1 MG VIAL IM PRN ×2 (17:48)
[2022-05-28] MEDS ORDERED: DEXTROSE 50% 25 GM/50 ML VIAL IV PRN (17:48)
[2022-05-28] MEDS ORDERED: DEXTROSE 10% 250 ML BAG IV PRN (18:03)
[2022-05-28] MEDS: methylPREDNISolone SOD SUC 40 MG/1 ML VIAL IV SCH (18:35)
[2022-05-28] MEDS ORDERED: NON-FORMULARY MEDICATION (Budesonide-Glycopyr-Formoterol [Breztri Aerosphere] 160-9-4.8 mc INH PRN (18:38)
[2022-05-28] MEDS ORDERED: SPIRONOLACTONE 50 MG TABLET PO PRN (18:38)
[2022-05-28] MEDS ORDERED: BENZONATATE 100 MG CAPSULE PO PRN (18:50)
[2022-05-28] MEDS: ALBUTEROL/IPRATROPIUM 3 ML NEB RESP TX SCH (18:50)
[2022-05-28] MEDS ORDERED: ESCITALOPRAM 10 MG TABLET PO PRN (18:51)
[2022-05-28] MEDS: ENOXAPARIN 40 MG/0.4 ML SYRINGE SUBCUT SCH (21:59)
[2022-05-28] MEDS: MONTELUKAST 10 MG TABLET PO SCH (22:00)
[2022-05-28] MEDS: POTASSIUM CHLORIDE 20 MEQ TABLET PO SCH (22:00)
[2022-05-28] MEDS: PHENYTOIN ER 100 MG CAPSULE PO SCH (22:00)
[2022-05-28] MEDS: DOXYCYCLINE HYCLATE INJ 100 MG in SODIUM CHLORIDE 0.9% 100 ML IV SCH (22:00)
[2022-05-28] MEDS: TOPIRAMATE 100 MG TABLET PO SCH (22:01)
[2022-05-28] MEDS: valACYclovir 500 MG TABLET PO SCH (22:07)
[2022-05-29] MEDS: ALBUTEROL/IPRATROPIUM 3 ML NEB RESP TX SCH ×4 (00:14→19:25)
[2022-05-29] MEDS: methylPREDNISolone SOD SUC 40 MG/1 ML VIAL IV SCH ×3 (02:49→18:12)
[2022-05-29 05:05] LABS: Basophils % 0.2 % (0.0-0.8); Hematocrit 36.9 VOL% (35.7-47.0); Hemoglobin 12.2 GM/DL (12.0-16.0); Immature Granulocytes % 0.5 %; Immature Granulocytes Absolute 0.03 #; Lymphocytes # 1.1 10*3/uL (1.4-4.0); Lymphocytes % 16.4 % (21.3-54.2); Mean Corpuscular HGB Conc 33.1 GM/DL (32-36); Mean Corpuscular Volume 91.6 FL (87-102); Mean Platelet Volume 9.8 FL (9.6-12.0); Monocytes # 0.2 10*3/uL (0.11-0.8); Monocytes % 3.2 % (1.7-12.7); Neutrophils % 79.7 % (38.7-73.9); Platelet Count 233 T/CUMM (130-400); Red Blood Count 4.03 MC/CUMM (3.8-5.5); Red Cell Distribution Width 13.4 % (9.3-17.3); White Blood Count 6.5 T/CUMM (4-12)
[2022-05-29 05:25] LABS: Alanine Aminotransferase 13 U/L (13-56); Albumin 3.1 G/DL (3.4-5.0); Alkaline Phosphatase 159 U/L (45-117); Aspartate Amino Transferase 10 U/L (0-37); Bilirubin,Total < 0.39 MG/DL (0.20-1.00); Blood Urea Nitrogen 10 MG/DL (7-18); Calcium 9.3 MG/DL (8.5-10.1); Carbon Dioxide 24 MMOL/L (21-32); Chloride 109 MMOL/L (98-107); Glucose 137 MG/DL (74-106); Osmolality,Calculated 279.4 MOS/KG (273-304); Potassium 4.3 MMOL/L (3.5-5.1); Sodium 140 MMOL/L (136-145); Total Protein 7.4 G/DL (6.4-8.2)
[2022-05-29] MEDS ORDERED: LEVOFLOXACIN 750 MG TABLET PO SCH (09:00)
[2022-05-29] MEDS: DOXYCYCLINE HYCLATE INJ 100 MG in SODIUM CHLORIDE 0.9% 100 ML IV SCH ×2 (09:00→21:52)
[2022-05-29] MEDS: PHENYTOIN ER 100 MG CAPSULE PO SCH ×2 (09:04→21:52)
[2022-05-29] MEDS: levETIRAcetam 250 MG TABLET PO SCH ×3 (09:04→17:54)
[2022-05-29] MEDS: carvediloL 25 MG TABLET PO SCH ×2 (09:05→17:54)
[2022-05-29] MEDS: ASPIRIN EC 81 MG TABLET PO SCH (09:05)
[2022-05-29] MEDS: metFORMIN 500 MG TABLET PO SCH ×2 (09:05→17:54)
[2022-05-29] MEDS: OLMESARTAN 20 MG TABLET PO SCH (09:05)
[2022-05-29] MEDS: ESTRADIOL 1 MG TABLET PO SCH (09:05)
[2022-05-29] MEDS: POTASSIUM CHLORIDE 20 MEQ TABLET PO SCH ×2 (09:05→21:52)
[2022-05-29] MEDS: PANTOPRAZOLE 40 MG TABLET PO SCH (09:05)
[2022-05-29] MEDS ORDERED: NYSTATIN 500,000 UNIT/5 ML UDCUP SWISH/SWAL PRN (10:30)
[2022-05-29] MEDS: cefTRIAXone 1,000 MG in SODIUM CHLORIDE 0.9% 100 ML IV SCH (12:39)
[2022-05-29] MEDS: ENOXAPARIN 40 MG/0.4 ML SYRINGE SUBCUT SCH (21:51)
[2022-05-29] MEDS: valACYclovir 500 MG TABLET PO SCH (21:52)
[2022-05-29] MEDS: MONTELUKAST 10 MG TABLET PO SCH (21:52)
[2022-05-29] MEDS: TOPIRAMATE 100 MG TABLET PO SCH (21:52)
[2022-05-30] MEDS: ALBUTEROL/IPRATROPIUM 3 ML NEB RESP TX SCH ×4 (00:34→19:25)
[2022-05-30] MEDS: methylPREDNISolone SOD SUC 40 MG/1 ML VIAL IV SCH ×3 (01:33→21:56)
[2022-05-30 06:30] LABS: Basophils % 0.2 % (0.0-0.8); Hematocrit 36.3 VOL% (35.7-47.0); Immature Granulocytes % 0.5 %; Immature Granulocytes Absolute 0.05 #; Lymphocytes # 1.3 10*3/uL (1.4-4.0); Lymphocytes % 13.2 % (21.3-54.2); Mean Corpuscular HGB Conc 33.1 GM/DL (32-36); Mean Corpuscular Volume 92.6 FL (87-102); Mean Platelet Volume 9.9 FL (9.6-12.0); Monocytes # 0.3 10*3/uL (0.11-0.8); Monocytes % 2.7 % (1.7-12.7); Neutrophils % 83.4 % (38.7-73.9); Platelet Count 240 T/CUMM (130-400); Red Blood Count 3.92 MC/CUMM (3.8-5.5); Red Cell Distribution Width 13.8 % (9.3-17.3); White Blood Count 9.5 T/CUMM (4-12)
[2022-05-30 06:44] LABS: Alanine Aminotransferase 12 U/L (13-56); Alkaline Phosphatase 161 U/L (45-117); Aspartate Amino Transferase 10 U/L (0-37); Bilirubin,Total < 0.39 MG/DL (0.20-1.00); Blood Urea Nitrogen 14 MG/DL (7-18); Calcium 9.4 MG/DL (8.5-10.1); Carbon Dioxide 23 MMOL/L (21-32); Chloride 109 MMOL/L (98-107); Glucose 173 MG/DL (74-106); Osmolality,Calculated 285.3 MOS/KG (273-304); Potassium 4.2 MMOL/L (3.5-5.1); Sodium 141 MMOL/L (136-145); Total Protein 7.4 G/DL (6.4-8.2)
[2022-05-30] MEDS ORDERED: MAGNESIUM SULF RIDER 2 GM/50 ML PREMIX IV ONE (08:21)
[2022-05-30] MEDS: POTASSIUM CHLORIDE 20 MEQ TABLET PO SCH ×2 (09:17→21:57)
[2022-05-30] MEDS: carvediloL 25 MG TABLET PO SCH ×2 (09:18→16:10)
[2022-05-30] MEDS: ASPIRIN EC 81 MG TABLET PO SCH (09:18)
[2022-05-30] MEDS: PANTOPRAZOLE 40 MG TABLET PO SCH (09:18)
[2022-05-30] MEDS: OLMESARTAN 20 MG TABLET PO SCH (09:18)
[2022-05-30] MEDS: levETIRAcetam 250 MG TABLET PO SCH ×3 (09:18→16:10)
[2022-05-30] MEDS: PHENYTOIN ER 100 MG CAPSULE PO SCH ×2 (09:18→21:57)
[2022-05-30] MEDS: metFORMIN 500 MG TABLET PO SCH ×2 (09:18→16:10)
[2022-05-30] MEDS: ESTRADIOL 1 MG TABLET PO SCH (09:18)
[2022-05-30] MEDS: DOXYCYCLINE HYCLATE INJ 100 MG in SODIUM CHLORIDE 0.9% 100 ML IV SCH ×2 (10:58→21:55)
[2022-05-30] MEDS: diphenhydrAMINE 50 MG/1 ML VIAL IV PRN (11:03)
[2022-05-30] MEDS: cefTRIAXone 1,000 MG in SODIUM CHLORIDE 0.9% 100 ML IV SCH (12:06)
[2022-05-30] MEDS: ENOXAPARIN 40 MG/0.4 ML SYRINGE SUBCUT SCH (21:56)
[2022-05-30] MEDS: MONTELUKAST 10 MG TABLET PO SCH (21:56)
[2022-05-30] MEDS: valACYclovir 500 MG TABLET PO SCH (21:56)
[2022-05-30] MEDS: TOPIRAMATE 100 MG TABLET PO SCH (21:57)
[2022-05-31] MEDS: ALBUTEROL/IPRATROPIUM 3 ML NEB RESP TX SCH ×2 (00:20→07:20)
[2022-05-31 05:55] LABS: Basophils % 0.1 % (0.0-0.8); Hematocrit 36.4 VOL% (35.7-47.0); Hemoglobin 11.9 GM/DL (12.0-16.0); Immature Granulocytes % 0.5 %; Immature Granulocytes Absolute 0.05 #; Lymphocytes # 1.5 10*3/uL (1.4-4.0); Lymphocytes % 15.6 % (21.3-54.2); Mean Corpuscular HGB Conc 32.7 GM/DL (32-36); Mean Corpuscular Volume 93.1 FL (87-102); Mean Platelet Volume 10.1 FL (9.6-12.0); Monocytes # 0.3 10*3/uL (0.11-0.8); Neutrophils % 80.8 % (38.7-73.9); Platelet Count 230 T/CUMM (130-400); Red Blood Count 3.91 MC/CUMM (3.8-5.5); Red Cell Distribution Width 14.1 % (9.3-17.3); White Blood Count 9.6 T/CUMM (4-12)
[2022-05-31 06:16] LABS: Alanine Aminotransferase 10 U/L (13-56); Albumin 3.3 G/DL (3.4-5.0); Alkaline Phosphatase 141 U/L (45-117); Aspartate Amino Transferase 7 U/L (0-37); Bilirubin,Total < 0.39 MG/DL (0.20-1.00); Blood Urea Nitrogen 15 MG/DL (7-18); Calcium 9.5 MG/DL (8.5-10.1); Carbon Dioxide 24 MMOL/L (21-32); Chloride 108 MMOL/L (98-107); Glucose 159 MG/DL (74-106); Osmolality,Calculated 280.5 MOS/KG (273-304); Potassium 4.1 MMOL/L (3.5-5.1); Sodium 139 MMOL/L (136-145); Total Protein 7.3 G/DL (6.4-8.2)
[2022-05-31] MEDS: PHENYTOIN ER 100 MG CAPSULE PO SCH (08:09)
[2022-05-31] MEDS: ASPIRIN EC 81 MG TABLET PO SCH (08:10)
[2022-05-31] MEDS: PANTOPRAZOLE 40 MG TABLET PO SCH (08:10)
[2022-05-31] MEDS: carvediloL 25 MG TABLET PO SCH ×2 (08:10→08:47)
[2022-05-31] MEDS: levETIRAcetam 250 MG TABLET PO SCH ×2 (08:10→12:25)
[2022-05-31] MEDS: POTASSIUM CHLORIDE 20 MEQ TABLET PO SCH (08:10)
[2022-05-31] MEDS: ESTRADIOL 1 MG TABLET PO SCH (08:10)
[2022-05-31] MEDS: OLMESARTAN 20 MG TABLET PO SCH (08:10)
[2022-05-31] MEDS: DOXYCYCLINE HYCLATE INJ 100 MG in SODIUM CHLORIDE 0.9% 100 ML IV SCH (08:11)
[2022-05-31] MEDS: diphenhydrAMINE 50 MG/1 ML VIAL IV PRN (08:22)
[2022-05-31] MEDS: cefTRIAXone 1,000 MG in SODIUM CHLORIDE 0.9% 100 ML IV SCH ×2 (10:20→10:51)
[2022-05-31] MEDS: methylPREDNISolone SOD SUC 40 MG/1 ML VIAL IV SCH (10:20)
[2022-05-31 11:00] VITALS: BP 108/59
== END 2022-05-31 13:55 | disposition home or self-care (01) ==
LOC: N.ED 13:30 → N.EDINP 17:48 → INTOOBSV 17:48 → N.3E 18:48
PROVIDERS: ADMIT Internal Medicine; ATTEND Internal Medicine